=== PATIENT | female | born 1955 | race Caucasian/White ===

== ENCOUNTER → 2020-07-06 13:56 | Outpatient (BNVA) | payer OTHER, SELFPAY | PROVIDERS: PCP Nurse Practitioner Family; Referring Provider Nurse Practitioner Family; Visit Provider Physician Assistant | DX: M17.11 Unilateral primary osteoarthritis, right knee (principal); M81.0 Age-related osteoporosis without current pathological fracture; Z91.010 Allergy to peanuts; Z91.013 Allergy to seafood; Z91.018 Allergy to other foods; Z91.09 Other allergy status, other than to drugs and biological substances | CPT/HCPCS: 99202 ==

== ENCOUNTER 2020-10-28 14:00 | Outpatient (RCR) | payer MEDICARE, OTHER, SELFPAY ==
--- NOTE | 2020-09-21 12:26 | MHC.PT.EP ---
[facility] [place] Office [place] Office [place] Office [address] Baron Arizmendi [address] [phone] F: [phone] F: [phone] F: [phone] F: [phone] Physical Therapy Plan of Care Date of Evaluation: 09/20/20 Date of Surgery: N/A Diagnosis: unilateral primary osteoarthritis R knee Assessment: pt presents to physical therapy with pain, decreased range of motion, decreased strength, impaired functional mobility, impaired postural awareness, and gait deviations. pt is a good candidate for skilled PT due to age, potential remediation of impairments, typical disease/condition progression and prognosis, comorbidities, and motivation. pt would benefit from tailored strengthening and stretching exercise program, functional training, gait training, postural re-training, neuromuscular re-education, modalities as needed for pain, equipment safety demonstration. Frequency and Duration: The patient will be seen 2x/wk for 5 wks Short Term Goals: pt will be I w/ HEP to promote self-management of condition. pt will improve R quad strength by 1 MMT grade to promote ease in ascending stairs to access primary living spaces. Fci Goals: pt will report <1/10 R knee pain w/ standing for >30 min to promote ease in helping her perform ADLs. pt will report statistically significant improvement in self-reported outcome measure, LEFI, to facilitate return to PLOF. Treatment Plan: Modalities to reduce pain, spasms and effusion. Manual therapy to restore motion and function. Therapeutic exercise to improve strength and flexibility. Neuromuscular re-education for posture and balance. Therapeutic activities to return to functional activities of daily living. Electronically signed by: Suma Ball PT, DPT Please sign and return to therapist. Thank you for your referral.
--- NOTE | 2020-10-28 14:54 | MHC.PT.DC ---
[facility] [place] Office [place] Office [place] Office [address] Baron Arizmendi 140 [facility] [phone] F: [phone] F: [phone] F: [phone] F: [phone] Physical Therapy Discharge Report Diagnosis: unilateral primary osteoarthritis R knee Date of Surgery: N/A Date of Evaluation: 09/20/20 Date of Discharge: 10/28/20 Treatments to Date: 12 Cancellations to Date: 0 No Shows to Date: 0 Discharge Status: Achieved Goals Improved Function Independent with HEP Discharge Summary: The patient has improved regarding her pain severity, pain intensity, and ability to tolerate therapeutic exercise and activity. She is independent with her home exercise program including stretching, strengthening, and dynamic activities. She has achieved all goals established at the initial evaluation. She is discharged from this physical therapy plan of care. Electronically signed by: Suma Ball PT, DPT Please sign and return to therapist. Thank you for your referral.
== END 2020-10-28 14:54 | disposition other institution (70) ==
LOC: HO.PT 14:00
PROVIDERS: PCP Nurse Practitioner Family; Visit Provider Physician Assistant
DX: M17.11 Unilateral primary osteoarthritis, right knee (principal)
CPT/HCPCS: 97110; 97112; 97161; 97530

== ENCOUNTER 2021-01-13 08:58 | Outpatient (REF) | payer MEDICARE, SELFPAY ==
[2021-01-13 11:15] LABS: MANUAL DIFF FLAG NO
[2021-01-13 11:26] LABS: Hematocrit 39.6 % (37-47); Hemoglobin 12.8 g/dl (12.0-16.0); Imm Gran Pct Auto 0.5 % (0.0-0.4); Lymphocytes Percent Auto 32.3 % (20-40); Mean Corpuscular HGB Conc 32.3 g/dl (31.0-35.0); Mean Corpuscular Hemoglobin 29.6 pg (27.0-33.0); Mean Corpuscular Volume 91.7 fL (80-98); Mean Platelet Volume 12.4 fL (9.4-12.3); Neutrophils Percent Auto 50.4 % (45-73); Platelet Count 249 X10*3/uL (160-400); Red Blood Count 4.32 X10*6/uL (4.20-5.50); Red Cell Distribution Width 12.6 % (11.0-16.0); White Blood Count 6.5 X10*3/uL (4.8-10.8)
[2021-01-13 11:27] LABS: Basophils Absolute Auto 0.1 X10*3/uL (0.0-0.2); Basophils Percent Auto 0.8 % (0-2); Eosinophils Absolute Auto 0.7 X10*3/uL (0.0-0.4); Imm Gran Abs Auto 0.03 X10*3/uL (0.00-0.03); Lymphocytes Absolute Auto 2.1 X10*3/uL (1.2-4.9); Monocytes Absolute Auto 0.4 X10*3/uL (0.1-1.2); Neutrophils Absolute Auto 3.3 X10*3/uL (2.0-8.3)
[2021-01-13 12:00] LABS: TSH reflex Free T4 1.62 uIU/mL (0.32-4.0)
[2021-01-13 12:04] LABS: Alanine Aminotransferase 16 U/L (0-31); Albumin Level 3.8 g/dL (3.5-5.0); Alkaline Phosphatase 84 U/L (39-117); Anion Gap 10 (12-20); Aspartate Amino Transferase 17 U/L (5-31); Bilirubin Total 0.5 mg/dL (0.0-1.0); Blood Urea Nitrogen 18 mg/dL (9-16); Carbon Dioxide 29 mmol/L (22-29); Chloride 106 mmol/L (96-108); Cholesterol 161 mg/dL; Estimated Glomerular Filt Rate > 60; Glucose Fasting 86 mg/dL (60-99); HDL Cholesterol 56 mg/dL; LDL Cholesterol Calculated 93 mg/dl; Potassium 4.2 mmol/L (3.3-5.1); Sodium 141 mmol/L (135-145); Total Protein 6.8 g/dL (6.5-8.0); Triglycerides 61 mg/dL
[2021-01-19 16:26] LABS: Vitamin D 25-OH, D2 23 ng/mL; Vitamin D 25-OH, D3 25 ng/mL; Vitamin D 25-OH, Total 48 ng/mL (30-100)
== END 2021-01-13 08:59 | disposition home or self-care (01) ==
LOC: HO.HMGCLDS 08:58
PROVIDERS: PCP Internal Medicine; Visit Provider Internal Medicine
DX: M81.0 Age-related osteoporosis without current pathological fracture (principal); E55.9 Vitamin D deficiency, unspecified; I48.0 Paroxysmal atrial fibrillation; E78.9 Disorder of lipoprotein metabolism, unspecified; Z76.89 Persons encountering health services in other specified circumstances
CPT/HCPCS: 36415; 80053; 80061; 82306; 84443; 85025

== ENCOUNTER 2021-04-13 10:01 | Outpatient (REF) | payer MEDICARE, SELFPAY ==
--- NOTE | ~2021-04-13 | MM_ITS ---
EXAMINATION: BONE DENSITOMETRY CLINICAL INDICATION: Encounter for other screening for malignant neoplasm. COMPARISON: Previous BD dated 01/12/2016 and baseline BD dated 07/26/2010. TECHNIQUE: Using a [employer] DXA System (software version: 13.1) manufactured by [employer], dual-energy x-ray absorptiometry was performed of the lumbar spine and left hip. The images are of good technical quality. Summary results are attached. FINDINGS: AP SPINE L1-L4: Current: BMD 0.927 g/cm2, Z-score -0.6, T-score -2.1, osteopenia, 1.6% increase from previous, 6.6% increase from baseline (<5% change is not significant). Prior: BMD 0.912 g/cm2. Baseline: BMD 0.870 g/cm2. LEFT FEMUR, NECK: Current: BMD 0.657 g/cm2, Z-score -1.3, T-score -2.7, osteoporosis. Prior: BMD 0.737 g/cm2. Baseline: BMD 0.699 g/cm2. LEFT FEMUR, TOTAL: Current: BMD 0.750 g/cm2, Z-score -0.9, T-score -2.0, osteopenia, 10.8% decrease from previous, 5.1% decrease from baseline (<5% change is not significant). Prior: BMD 0.841 g/cm2. Baseline: BMD 0.790 g/cm2. IDENTIFIED RISK FACTORS: Osteoporosis, low calcium intake. Early menopause, secondary osteoporosis. HISTORY OF FRACTURE: None listed. MEDICATIONS: Calcium supplements or multivitamin, vitamin D. MM/XR DEXA axial skeleton IMPRESSION: 1. DIAGNOSIS: Osteoporosis based on the lowest T-score value of -2.7 in the femoral neck applying World Health Organization criteria. 2. 10-YEAR FRACTURE RISK PREDICTION, FRAX: Major osteoporotic fracture (clinical spine, forearm, hip or shoulder) 8.2%. Hip fracture 2.0%. 3. Treatment Recommendations: NOF guidelines recommend consideration for treatment in postmenopausal women and men age 50 and older presenting with the following: -A hip or vertebral (clinical or morphometric) fracture. -T-score less than or equal to -2.5 at the femoral neck or spine after appropriate evaluation to exclude secondary causes. -Low bone mass at the hip or spine and a 10-year fracture probability by FRAX of greater than or equal to 3% for hip fracture or greater than or equal to 20% for major osteoporotic fracture based on the [place] adapted WHO algorithm. 4. Other Recommendations: All treatment decisions require clinical judgment and consideration of individual patient factors, including patient preferences, comorbidities, previous drug use, risk factors not captured in the FRAX model (e.g. frailty, falls, vitamin D deficiency, increased bone turnover, interval significant decline in bone density) and possible under or overestimation of fracture risk by FRAX. Additional medical evaluation for secondary cause of low bone mineral density may be appropriate. FUTURE SCAN RECOMMENDATION: People with diagnosed cases of osteoporosis or at high risk for fracture should have regular bone mineral density tests. For patients eligible for Medicare, routine testing is allowed once every 2 years. The testing frequency can be increased to one year for patients who have rapidly progressing disease, those who are receiving or discontinuing medical therapy to restore bone mass, or have additional risk factors.
== END 2021-04-13 10:02 | disposition home or self-care (01) ==
LOC: HO.MAMMO 10:01
PROVIDERS: PCP Internal Medicine; Visit Provider Internal Medicine
DX: M81.0 Age-related osteoporosis without current pathological fracture (principal); Z78.0 Asymptomatic menopausal state
CPT/HCPCS: 77080

== ENCOUNTER 2021-05-01 10:17 | Outpatient (REF) | payer MEDICARE, SELFPAY ==
--- NOTE | ~2021-05-01 | MM_ITS ---
EXAMINATION: MM SCREENING DIGITAL BREAST TOMOSYNTHESIS, BILATERAL CLINICAL INFORMATION: Screening. Asymptomatic. The lifetime risk of breast cancer based on the Tyrer-Cuzick Model is 3%. COMPARISON: Mammography: 04/26/2020, 04/21/2019, 04/03/2018 TECHNIQUE: Digital breast tomosynthesis is performed in both the craniocaudal and mediolateral oblique views along with computer-aided detection (CAD). Synthesized 2D images are generated from the tomosynthesis. FINDINGS: The breasts are heterogeneously dense, which may obscure small masses (ACR BI-RADS breast composition Category c). There are no significant masses, abnormal calcifications, or other abnormalities. Parenchymal pattern is similar to prior studies. No developing density. Incidental intramammary nodes again noted outer quadrants. The axilla and skin contours are unremarkable. MM/MM tomosynthesis screening BI IMPRESSION: No mammographic evidence of malignancy. ASSESSMENT: BI-RADS 2: Benign RECOMMENDATION: Routine annual mammography screening. This patient's information was entered into a reminder system with a target due date for their next mammogram.
== END 2021-05-01 10:18 | disposition home or self-care (01) ==
LOC: HO.MAMMO 10:17
PROVIDERS: PCP Internal Medicine; Visit Provider Internal Medicine
DX: Z12.31 Encounter for screening mammogram for malignant neoplasm of breast (principal)
CPT/HCPCS: 77063; 77067

== ENCOUNTER 2021-06-14 10:00 | Outpatient (REF) | payer MEDICARE, SELFPAY ==
--- NOTE | ~2021-06-14 | XR_ITS ---
EXAMINATION: XR CERVICAL SPINE CLINICAL INFORMATION: Cervicalgia. COMPARISON: None TECHNIQUE: AP, lateral, open-mouth, and foraminal views of the cervical spine were obtained. FINDINGS: Normal vertebral body alignment. The cervical lordosis is maintained. No acute fracture or subluxation. No loss of vertebral body height. Loss of intervertebral disc height with anterior endplate osteophytes at C4-C7. No lytic or blastic osseous lesion. Normal atlantoaxial alignment. Unremarkable prevertebral soft tissues. XR/XR cervical spine 3V IMPRESSION: Degenerative disc disease at C4-C7.
== END 2021-06-14 10:01 | disposition home or self-care (01) ==
LOC: HO.XRAY 10:00
PROVIDERS: PCP Internal Medicine; Visit Provider Nurse Practitioner Family
DX: M54.2 Cervicalgia (principal)
CPT/HCPCS: 72040; 99202

== ENCOUNTER 2021-07-03 09:53 | Outpatient (REF) | payer MEDICARE, SELFPAY ==
[2021-07-05 13:30] LABS: HPV mRNA E6/E7 rflx Not Detected (Not Detected)
== END 2021-07-03 09:54 | disposition home or self-care (01) ==
LOC: HO.LAB 09:53
PROVIDERS: PCP Internal Medicine; Visit Provider Advanced Practice Midwife
DX: Z01.419 Encounter for gynecological examination (general) (routine) without abnormal findings (principal); N95.2 Postmenopausal atrophic vaginitis
CPT/HCPCS: 87624; 88142

== ENCOUNTER 2021-12-25 08:55 | Outpatient (REF) | payer MEDICARE, SELFPAY ==
[2021-12-25 12:04] LABS: Alanine Aminotransferase 16 U/L (0-31); Albumin Level 3.8 g/dL (3.5-5.0); Alkaline Phosphatase 85 U/L (39-117); Anion Gap 10 (12-20); Aspartate Amino Transferase 17 U/L (5-31); Bilirubin Total 0.6 mg/dL (0.0-1.0); Blood Urea Nitrogen 13 mg/dL (9-16); Calcium 9.3 mg/dL (8.4-10.2); Carbon Dioxide 30 mmol/L (22-29); Chloride 105 mmol/L (96-108); Cholesterol 180 mg/dL; Estimated Glomerular Filt Rate > 60; Glucose Fasting 88 mg/dL (60-99); HDL Cholesterol 51 mg/dL; LDL Cholesterol Calculated 93 mg/dl; Potassium 4.5 mmol/L (3.3-5.1); Sodium 140 mmol/L (135-145); Triglycerides 181 mg/dL
== END 2021-12-25 08:56 | disposition home or self-care (01) ==
LOC: HO.HMGCLDS 08:55
PROVIDERS: Visit Provider Internal Medicine
DX: E78.9 Disorder of lipoprotein metabolism, unspecified (principal); I48.0 Paroxysmal atrial fibrillation; M81.0 Age-related osteoporosis without current pathological fracture; E66.09 Other obesity due to excess calories
CPT/HCPCS: 36415; 80053; 80061

== ENCOUNTER 2022-05-14 09:58 | Outpatient (REF) | payer MEDICARE, SELFPAY ==
--- NOTE | ~2022-05-14 | MM_ITS ---
EXAMINATION: MM SCREENING DIGITAL BREAST TOMOSYNTHESIS, BILATERAL CLINICAL INFORMATION: Screening. Asymptomatic. The lifetime risk of breast cancer based on the Tyrer-Cuzick Model is 3%. COMPARISON: Mammography: 05/01/2021, 04/26/2020, 04/21/2019 TECHNIQUE: Digital breast tomosynthesis is performed in both the craniocaudal and mediolateral oblique views along with computer-aided detection (CAD). Synthesized 2D images are generated from the tomosynthesis. FINDINGS: The breasts are heterogeneously dense, which may obscure small masses (ACR BI-RADS breast composition Category c). There are no significant masses, abnormal calcifications, or other abnormalities. Parenchymal pattern is similar to prior studies. There is no developing density or architectural abnormality. The axilla and skin contours are unremarkable. No significant changes. MM/MM tomosynthesis screening BI IMPRESSION: No mammographic evidence of malignancy. ASSESSMENT: BI-RADS 1: Negative RECOMMENDATION: Routine annual mammography screening. This patient's information was entered into a reminder system with a target due date for their next mammogram.
== END 2022-05-14 09:59 | disposition home or self-care (01) ==
LOC: HO.MAMMO 09:58
PROVIDERS: PCP Internal Medicine; Visit Provider Internal Medicine
DX: Z12.31 Encounter for screening mammogram for malignant neoplasm of breast (principal)
CPT/HCPCS: 77063; 77067

== ENCOUNTER 2022-07-24 13:07 | Outpatient (REF) | payer MEDICARE, SELFPAY ==
[2022-07-24 14:18] LABS: MANUAL DIFF FLAG NO
[2022-07-24 14:21] LABS: Basophils Absolute Auto 0.1 X10*3/uL (0.0-0.2); Basophils Percent Auto 1.3 % (0-2); Eosinophils Absolute Auto 0.4 X10*3/uL (0.0-0.4); Eosinophils Percent Auto 6.2 % (0-4); Hemoglobin 12.7 g/dl (12.0-16.0); Imm Gran Abs Auto 0.01 X10*3/uL (0.00-0.03); Imm Gran Pct Auto 0.1 % (0.0-0.4); Lymphocytes Absolute Auto 2.2 X10*3/uL (1.2-4.9); Lymphocytes Percent Auto 31.8 % (20-40); Mean Corpuscular HGB Conc 32.6 g/dl (31.0-35.0); Mean Platelet Volume 12.5 fL (9.4-12.3); Monocytes Absolute Auto 0.4 X10*3/uL (0.1-1.2); Monocytes Percent Auto 6.1 % (2-11); Neutrophils Absolute Auto 3.8 x10*3/uL (2.0-8.3); Neutrophils Percent Auto 54.5 % (45-73); Platelet Count 265 X10*3/uL (160-400); Red Blood Count 4.24 X10*6/uL (4.20-5.50); Red Cell Distribution Width 12.6 % (11.0-16.0); White Blood Count 6.9 X10*3/uL (4.8-10.8)
[2022-07-24 15:12] LABS: Alanine Aminotransferase 14 U/L (0-31); Albumin Level 3.9 g/dL (3.5-5.0); Alkaline Phosphatase 97 U/L (39-117); Anion Gap 11 (12-20); Aspartate Amino Transferase 17 U/L (5-31); Bilirubin Total 0.4 mg/dL (0.0-1.0); Blood Urea Nitrogen 19 mg/dL (9-16); Calcium 9.2 mg/dL (8.4-10.2); Carbon Dioxide 29 mmol/L (22-29); Chloride 106 mmol/L (96-108); Estimated Glomerular Filt Rate > 60; Glucose Random 106 mg/dL (60-115); Potassium 4.1 mmol/L (3.3-5.1); Sodium 142 mmol/L (135-145)
[2022-07-27 09:47] LABS: LDL Cholesterol Direct 84 mg/dL (<100)
[2022-07-31 14:06] LABS: Vitamin D 25-OH, D2 7 ng/mL; Vitamin D 25-OH, D3 41 ng/mL; Vitamin D 25-OH, Total 48 ng/mL (30-100)
== END 2022-07-24 13:08 | disposition home or self-care (01) ==
LOC: HO.HMGCLDS 13:07
PROVIDERS: PCP Internal Medicine; Visit Provider Internal Medicine
DX: Z00.01 Encounter for general adult medical examination with abnormal findings (principal); E78.9 Disorder of lipoprotein metabolism, unspecified; I48.0 Paroxysmal atrial fibrillation; M81.0 Age-related osteoporosis without current pathological fracture; E66.09 Other obesity due to excess calories
CPT/HCPCS: 36415; 80053; 82306; 83721; 85025

== ENCOUNTER 2022-07-31 07:49 | Outpatient (REF) | payer MEDICARE, SELFPAY ==
[2022-07-31 08:11] LABS: MANUAL DIFF FLAG NO
[2022-07-31 09:21] LABS: Basophils Absolute Auto 0.1 X10*3/uL (0.0-0.2); Basophils Percent Auto 0.8 % (0-2); Eosinophils Absolute Auto 1.6 X10*3/uL (0.0-0.4); Hematocrit 38.8 % (37.0-47.0); Hemoglobin 12.8 g/dl (12.0-16.0); Imm Gran Abs Auto 0.01 X10*3/uL (0.00-0.03); Imm Gran Pct Auto 0.1 % (0.0-0.4); Lymphocytes Absolute Auto 2.6 X10*3/uL (1.2-4.9); Lymphocytes Percent Auto 30.3 % (20-40); Mean Corpuscular Hemoglobin 30.5 pg (27.0-33.0); Mean Corpuscular Volume 92.6 fL (80.0-98.0); Mean Platelet Volume 12.5 fL (9.4-12.3); Monocytes Absolute Auto 0.5 X10*3/uL (0.1-1.2); Monocytes Percent Auto 5.3 % (2-11); Neutrophils Absolute Auto 3.9 x10*3/uL (2.0-8.3); Neutrophils Percent Auto 45.5 % (45-73); Platelet Count 254 X10*3/uL (160-400); Red Blood Count 4.19 X10*6/uL (4.20-5.50); Red Cell Distribution Width 12.7 % (11.0-16.0); White Blood Count 8.6 X10*3/uL (4.8-10.8)
[2022-07-31 09:52] LABS: Alanine Aminotransferase 16 U/L (0-31); Alkaline Phosphatase 97 U/L (39-117); Anion Gap 15 (12-20); Aspartate Amino Transferase 18 U/L (5-31); Bilirubin Total 0.5 mg/dL (0.0-1.0); Blood Urea Nitrogen 18 mg/dL (9-16); Calcium 9.2 mg/dL (8.4-10.2); Carbon Dioxide 26 mmol/L (22-29); Chloride 105 mmol/L (96-108); Estimated Glomerular Filt Rate > 60; Glucose Random 88 mg/dL (60-115); Potassium 4.5 mmol/L (3.3-5.1); Sodium 141 mmol/L (135-145)
== END 2022-07-31 07:50 | disposition home or self-care (01) ==
LOC: HO.LAB 07:49
PROVIDERS: PCP Internal Medicine; Visit Provider Internal Medicine Cardiovascular Disease
DX: E66.09 Other obesity due to excess calories (principal); E78.9 Disorder of lipoprotein metabolism, unspecified; M81.0 Age-related osteoporosis without current pathological fracture; I48.0 Paroxysmal atrial fibrillation
CPT/HCPCS: 36415; 80053; 85025

== ENCOUNTER 2023-01-10 07:28 | Outpatient (REF) | payer MEDICARE, SELFPAY ==
[2023-01-10 11:57] LABS: Alanine Aminotransferase 15 U/L (0-31); Albumin Level 3.9 g/dL (3.5-5.0); Alkaline Phosphatase 88 U/L (39-117); Anion Gap 10 (12-20); Aspartate Amino Transferase 19 U/L (5-31); Bilirubin Total 0.4 mg/dL (0.0-1.0); Blood Urea Nitrogen 16 mg/dL (9-16); Calcium 9.2 mg/dL (8.4-10.2); Carbon Dioxide 27 mmol/L (22-29); Chloride 107 mmol/L (96-108); Cholesterol 157 mg/dL; Estimated Glomerular Filt Rate > 60; Glucose Fasting 85 mg/dL (60-99); HDL Cholesterol 51 mg/dL; LDL Cholesterol Calculated 91 mg/dl; Lipase 34 U/L (8-78); Potassium 4.6 mmol/L (3.3-5.1); Sodium 139 mmol/L (135-145); Triglycerides 78 mg/dL
== END 2023-01-10 07:29 | disposition home or self-care (01) ==
LOC: HO.HMGCLDS 07:28
PROVIDERS: PCP Internal Medicine; Visit Provider Internal Medicine
DX: Z00.01 Encounter for general adult medical examination with abnormal findings (principal); I48.0 Paroxysmal atrial fibrillation; E78.9 Disorder of lipoprotein metabolism, unspecified; M81.0 Age-related osteoporosis without current pathological fracture
CPT/HCPCS: 36415; 80053; 80061; 83690

== ENCOUNTER 2023-01-15 15:27 | Outpatient (REF) | payer MEDICARE, SELFPAY ==
--- NOTE | ~2023-01-15 | XR_ITS ---
EXAMINATION: XR CHEST CLINICAL INFORMATION: R09.89 - Other specified symptoms and signs COMPARISON: Chest radiographs 11/10/2019, 02/24/2015 TECHNIQUE: 2 views of the chest were obtained. FINDINGS: The lungs are clear. The vascularity is normal. There is no airspace consolidation or groundglass opacity or effusion. Heart size is normal. The vascularity is normal. The costophrenic sulci are clear. The hilar and mediastinal contours are unremarkable. No visible acute bony abnormality. XR/XR chest 2V IMPRESSION: Unremarkable examination.
[2023-01-15 19:43] LABS: Influenza A PCR NEGATIVE (Negative); Influenza B PCR NEGATIVE (Negative); Resp Syncy Virus RNA Qual PCR NEGATIVE (Negative); SARS COV2 PCR INHOUSE NEGATIVE (Negative)
== END 2023-01-15 15:28 | disposition home or self-care (01) ==
LOC: HO.HMGCX 15:27
PROVIDERS: PCP Internal Medicine; Visit Provider Internal Medicine
DX: Z20.822 Contact with and (suspected) exposure to COVID-19 (principal); R09.89 Other specified symptoms and signs involving the circulatory and respiratory systems
CPT/HCPCS: 0241U; 71046

== ENCOUNTER 2023-05-20 09:17 | Outpatient (REF) | payer MEDICARE, SELFPAY | END 2023-05-20 09:18 | disposition home or self-care (01) | LOC: HO.MAMMO 09:17 | PROVIDERS: PCP Internal Medicine; Visit Provider Internal Medicine | DX: Z12.31 Encounter for screening mammogram for malignant neoplasm of breast (principal) | CPT/HCPCS: 77063; 77067 ==

== ENCOUNTER → 2023-05-20 09:45 | Outpatient (BNV) | payer MEDICARE, SELFPAY | PROVIDERS: PCP Internal Medicine; Visit Provider Radiology Diagnostic Radiology | DX: Z12.31 Encounter for screening mammogram for malignant neoplasm of breast (principal) | CPT/HCPCS: 77063; 77067 ==

== ENCOUNTER 2023-07-01 10:24 | Outpatient (REF) | payer MEDICARE, SELFPAY ==
--- NOTE | ~2023-07-01 | MM_ITS ---
EXAMINATION: MM DIAGNOSTIC DIGITAL MAMMOGRAPHY, LEFT CLINICAL INFORMATION: Evaluate calcifications lateral breast seen on screening exam. COMPARISON: Mammography: Screening mammography 05/20/2023. Exams dating back to 2018. TECHNIQUE: Digital mammography is performed in the following views: 3-D spot magnification left CC views, and left 2-D ML magnification views x3. FINDINGS: The breasts are heterogeneously dense, which may obscure small masses (ACR BI-RADS breast composition Category c). Magnification views demonstrate in the lateral slightly superior left breast, middle one third, there are approximately 5 grouped punctate calcifications without significant pleomorphism, linear or branching forms, or suspicious distribution. These are probably benign, and 6 month interval follow-up recommended to ensure stability. Results were provided to the patient at time of visit by the technologist. MM/MM added views LT IMPRESSION: Probably benign small group of microcalcifications upper outer left breast, middle one third. Six-month follow-up recommended to ensure stability. This should include standard magnification views. ASSESSMENT: BI-RADS BI-RADS 3 - Probably benign finding(s) - 6 month follow-up suggested RECOMMENDATION: 6 Month F/U This patient's information was entered into a reminder system with a target due date for their next mammogram.
== END 2023-07-01 10:25 | disposition home or self-care (01) ==
LOC: HO.MAMMO 10:24
PROVIDERS: PCP Internal Medicine; Visit Provider Internal Medicine
DX: R92.1 Mammographic calcification found on diagnostic imaging of breast (principal)
CPT/HCPCS: 77065

== ENCOUNTER → 2023-07-01 11:00 | Outpatient (BNV) | payer MEDICARE, SELFPAY | PROVIDERS: PCP Internal Medicine; Visit Provider Radiology Diagnostic Radiology | DX: R92.1 Mammographic calcification found on diagnostic imaging of breast (principal) | CPT/HCPCS: 77065 ==

== ENCOUNTER 2023-07-09 10:06 | Outpatient (REF) | payer MEDICARE, SELFPAY ==
[2023-07-10 09:58] LABS: BV Int Neg Control Negative (Negative); BV Int Pos Control Positive (Positive)
== END 2023-07-09 10:07 | disposition home or self-care (01) ==
LOC: HO.LAB 10:06
PROVIDERS: PCP Internal Medicine; Visit Provider Advanced Practice Midwife
DX: Z01.419 Encounter for gynecological examination (general) (routine) without abnormal findings (principal); N89.8 Other specified noninflammatory disorders of vagina
CPT/HCPCS: 87480; 87510; 87660

== ENCOUNTER 2023-07-16 12:41 | Outpatient (AMB) | payer MEDICARE, SELFPAY ==
[2023-07-16 12:45] VITALS: BP 128/80; PULSE 67; O2SAT 97; BMI 30.8
--- NOTE | 2023-07-16 12:45 | A.OFFPC_ITS ---
Vital Signs 07/16/23 12:45 Height 4 ft 11 in Weight 152 lb 6 oz BMI 30.8 BP 128/80 Blood Pressure Location Rt brachial Position Sitting Pulse 67 Pulse Source Pulse Oximeter Pulse Oximetry (%) 97 Oxygen Delivery Method Room Air Intake Visit Reasons: 6 month follow up Allergies peach [PEACH] Allergy (Intermediate, Verified 07/16/23 12:45) ITCHY THROAT barley [Barley] Allergy (Unknown, Verified 07/16/23 12:45) + SKIN TEST peanut [PEANUT] Allergy (Unknown, Verified 07/16/23 12:45) + SKIN TEST food allergies Allergy (Unknown, Uncoded 07/09/23 10:16) unknown LOBSTER Allergy (Unknown, Uncoded 07/05/22 10:02) + SKIN TEST nuts Allergy (Unknown, Uncoded 07/05/22 10:02) unknown seasonal Allergy (Unknown, Uncoded 07/05/22 10:02) unknown Medication List - Last Reconciled 07/16/23 by Regina Reyes MD calcium carbonate 600 mg PO BID cholecalciferol (vitamin D3) 25 mcg PO DAILY 90 days clobetasol 0.05% 1 g topical .twice weekly 90 days denosumab (Prolia) 60 mg subcut [id number] leg brace (Knee Support Brace) Genumed Knee support [id number] metoprolol tartrate 25 mg PO BID 90 days simvastatin 20 mg PO DAILY 90 days Tobacco use date assessed: 07/16/23 Fall risk assessment: No Falls in past year Last assessed Fall Risk: 07/16/23 Dental Screening Dental Screen Date: 07/16/23 Did you have a dental visit in the last 12 months?: Yes Did you have a dental problem in the last 6 months where you did not have access to dental care?: No Was dental information given to patient?: Patient has dentist HPI 6 month follow up HPI Details Patient is 67-year-old female came in today for her six-month follow-up appointment on lipid disorder Patient also have a paroxysmally atrial fibrillation currently she is seeing Dr. Ran Michael and is on Xarelto through them along with metoprolol Lipid disorder: Patient is on simvastatin 20 mg, she is due for labs order place She has appointment with me in December for physical examination patient will have lab before december as well. Osteoporosis: Patient is on Prolia through endocrinology. BMI is elevated at 30.8 patient need to lose weight. [facility] Medical History Osteoporosis Atrial fibrillation Hyperlipidemia Surgical History History of bladder surgery Family History Mother HTN (hypertension) Diabetes Father Lung cancer Brother Lung cancer Stomach cancer Diabetes Sister Uterus cancer Social History Household Members: Spouse Household Members Other:: sister Housing: House Alcohol intake: current Alcohol intake frequency: holidays/special occasions only Patient Tobacco Use Status: Never used Tobacco e-Cigarette/Vaping Use: Never Used Second Hand Smoke Exposure: Yes service: No Current occupational status: retired Sexual orientation: Straight/Heterosexual Gender identity: Female Cognitive needs: No Hearing needs: No Vision needs: Yes Questionnaire PHQ-9 Over the last 2 weeks, how often have you been bothered by any of the following problems? 1. Little interest or pleasure in doing things: several days 2. Feeling down, depressed, or hopeless: not at all 3. Trouble falling or staying asleep, or sleeping too much: not at all 4. Feeling tired or having little energy: nearly every day 5. Poor appetite or overeating: not at all 6. Feeling bad about yourself - or that you are a failure or have let yourself or your family down: not at all 7. Trouble concentrating on things, such as reading the newspaper or watching television: nearly every day 8. Moving or speaking so slowly that other people could have noticed. Or the opposite - being so fidgety or restless that you have been moving around a lot more than usual: not at all 9. Thoughts that you would be better off or of hurting yourself in some way: not at all Total score: 7 Depression Screening Interpretation: Positive Depression Screening Follow-up: Existing condition and Declines treatment Depression Screening Done: Yes 19791 - PHQ-9 Billing: Yes Source: Developed by Drs. aJsen Fuller, Elizabeth Spencer, Kana Syed and colleagues, with an educational cee from [employer] Thrive Questionnaire Date Thrive assessed: 07/16/23 I am a: Patient What is your living situation today?: I have a steady place to live Within the past 12 months, did the food you bought not last and you didn't have the money to get more?: Never true Within the past 12 months, did you worry whether your food would run out before you got money to buy more?: Never true Do you have trouble paying for medicines?: No Do you have trouble getting transportation to medical appointments?: No Do you have trouble paying your heating and electricity bill?: No Do you have trouble taking care of your child, family member or friend?: No Do you have trouble with day-to-day activities such as bathing, preparing meals, shopping, managing finances, etc.?: No Are you currently unemployed and looking for a job?: No Are you interested in more education?: No Please select the resources that you would like help with: None Currently or been in a relationship where the following occur: no concerns reported DARIEN-7 AMB Questionnaire DARIEN-7 Date DARIEN - 7 assessed: 07/16/23 Feeling nervous, anxious, or on edge: 0 = Not at all Not being able to stop or control worryin = Several days Worrying too much about different things: 3 = Nearly every day Trouble relaxin = Nearly every day Being so restless that it is hard to sit still: 0 = Not at all Becoming easily annoyed or irritable: 0 = Not at all Feeling afraid as if something awful might happen: 0 = Not at all Total DARIEN-7 score (0-4 normal; 5-9 mild; 10-14 moderate; 15-21 severe): 7 Source: Developed by Drs. Jasen Fuller, Elizabeth Spencer, Kana Syed and colleagues, with an educational cee from [employer]. DARIEN-7 Assessment Billing DARIEN-7 Assessment Tool: DARIEN-7 Assessment 87748 Review of Systems Const Denies chills and Denies fever(s) ENT Denies epistaxis and Denies nasal discharge Card Denies chest pain Resp Denies chest congestion, Denies cough and Denies hemoptysis GI Denies diarrhea and Denies nausea Skin/Breast Denies rash Neuro Reports no additional complaints Psych Reports no additional complaints Endo Reports no additional complaints Physical exam (Primary Care) Vital Signs: Last Vital Signs Pulse 67 07/16/23 12:45 BP 128/80 07/16/23 12:45 Pulse Ox 97 07/16/23 12:45 Oxygen Delivery Method Room Air 07/16/23 12:45 BMI result Body Mass Index 30.8 Tobacco/Smoking Status: Tobacco use Status Tobacco use date assessed 07/16/23 07/16/23 12:47 Patient Tobacco Use Status Never used Tobacco 07/16/23 12:47 e-Cigarette/Vaping Use Never Used 07/16/23 12:47 PHQ-9: PHQ-9 Score PHQ-9: Total score 7 07/16/23 13:27 Depression Screening Interpretation: Positive Depression Screening Follow-up: Existing condition and Declines treatment Thrive Assessment: Date of Thrive Assessment Date Thrive assessed 07/16/23 07/16/23 13:27 Currently or been in a relationship where the following occur: no concerns reported Const General: cooperative, comfortable and no acute distress Orientation/consciousness: patient oriented x3 HENMT Head: Yes normocephalic Eyes General: appearance normal, both eyes and all related structures Neck Neck: Yes supple Resp Effort & Inspection: normal respiratory effort, no cough and no stridor Cardio Rhythm: regular rhythm Heart sounds: S1 normal heart sound present and S2 normal heart sound present Skin General skin exam: turgor normal Neuro General: patient oriented x3, tone normal and moves all extremities Extrem Right lower extremity: no edema Left lower extremity: no edema Assessment and Plan Assessment & Plan (1) Lipid disorder: Code(s): E78.9 - Disorder of lipoprotein metabolism, unspecified (2) Osteoporosis: Code(s): M81.0 - Age-related osteoporosis without current pathological fracture Qualifiers: Osteoporosis type: age-related Presence of current pathological fra cture: without current pathological fracture Qualified Code(s): M81.0 - Age- related osteoporosis without current pathological fracture (3) Paroxysmal atrial fibrillation: Code(s): I48.0 - Paroxysmal atrial fibrillation (4) Vitamin D deficiency: Code(s): E55.9 - Vitamin D deficiency, unspecified (5) Obesity due to excess calories: Code(s): E66.09 - Other obesity due to excess calories Qualifiers: Body mass index: BMI 30.0-30.9 Obesity classification: adult class 1 (BMI 30 - 34.9) Serious obesity comorbidity presence: with serious comorbidity Qualified Code(s): E66.09 - Other obesity due to excess calories; Z68.30 - Body mass index [BMI] 30.0-30.9, adult Plan Patient is 67-year-old female came in today for her six-month follow-up appointment on lipid disorder Patient also have a paroxysmally atrial fibrillation currently she is seeing Dr. Ran Michael and is on Xarelto through them along with metoprolol Lipid disorder: Patient is on simvastatin 20 mg, she is due for labs order place She has appointment with me in December for physical examination patient will have lab before december as well. Osteoporosis: Patient is on Prolia through endocrinology. BMI is elevated at 30.8 patient need to lose weight. Orders: Orders Lipid Panel Today E55.9 - Vitamin D deficiency, unspecified, E78.9 - Disorder of lipoprotein metabolism, unspecified, I48.0 - Paroxysmal atrial fibrillation, M81.0 - Age-related osteoporosis without current pathological fracture Complete Blood Count Auto Diff Today E55.9 - Vitamin D deficiency, unspecified, E78.9 - Disorder of lipoprotein metabolism, unspecified, I48.0 - Paroxysmal atrial fibrillation, M81.0 - Age-related osteoporosis without current patho logical fracture Comprehensive [place]. Panel Fast Today E55.9 - Vitamin D deficiency, unspecified, E78.9 - Disorder of lipoprotein metabolism, unspecified, I48.0 - Paroxysmal atrial fibrillation, M81.0 - Age-related osteoporosis without current pathological fracture Complete Blood Count Auto Diff 6 Months E55.9 - Vitamin D deficiency, unspecified, E78.9 - Disorder of lipoprotein metabolism, unspecified, I48.0 - Paroxysmal atrial fibrillation, M81.0 - Age-related osteoporosis without current pathological fracture Comprehensive [facility]. Panel Fast 6 Months E55.9 - Vitamin D deficiency, unspecified, E78.9 - Disorder of lipoprotein metabolism, unspecified, I48.0 - Paroxysmal atrial fibrillation, M81.0 - Age-related osteoporosis without current pathological fracture Lipid Panel 6 Months E55.9 - Vitamin D deficiency, unspecified, E78.9 - Disorder of lipoprotein metabolism, unspecified, I48.0 - Paroxysmal atrial fibrillation, M81.0 - Age-related osteoporosis without current pathological fracture Coding Level of Care Code Est Pt Level 4 (97716) Diagnoses Lipid disorder E78.9 Age-related osteoporosis without current pathological fracture M81.0 Osteoporosis type: age-related Presence of current pathological fracture: without current pathological fracture Paroxysmal atrial fibrillation I48.0 Vitamin D deficiency E55.9 Class 1 obesity due to excess calories with serious comorbidity and body mass index (BMI) of 30.0 to 30.9 in adult E66.09; Z68.30 Body mass index: BMI 30.0-30.9 Obesity classification: adult class 1 (BMI 30 - 34.9) Serious obesity comorbidity presence: with serious comorbidity Additional Codes DARIEN-7 Assessment Billing - DARIEN-7 Assessment Tool: DARIEN-7 Assessment [id number] ([id number])
== END 2023-07-16 13:37 | disposition home or self-care (01) ==
PROVIDERS: Visit Provider Internal Medicine
DX: E78.9 Disorder of lipoprotein metabolism, unspecified (principal); M81.0 Age-related osteoporosis without current pathological fracture; I48.0 Paroxysmal atrial fibrillation; E55.9 Vitamin D deficiency, unspecified; E66.09 Other obesity due to excess calories; Z68.30 Body mass index [BMI] 30.0-30.9, adult
CPT/HCPCS: 99214

== ENCOUNTER 2023-07-23 07:01 | Outpatient (REF) | payer MEDICARE, SELFPAY ==
[2023-07-23 07:12] LABS: MANUAL DIFF FLAG NO
[2023-07-23 07:34] LABS: Basophils Percent Auto 0.5 % (0-2); Eosinophils Absolute Auto 0.5 X10*3/uL (0.0-0.4); Eosinophils Percent Auto 6.8 % (0-4); Hematocrit 39.8 % (37.0-47.0); Hemoglobin 13.2 g/dl (12.0-16.0); Imm Gran Abs Auto 0.02 X10*3/uL (0.00-0.03); Imm Gran Pct Auto 0.3 % (0.0-0.4); Lymphocytes Percent Auto 38.1 % (20-40); Mean Corpuscular HGB Conc 33.2 g/dl (31.0-35.0); Mean Corpuscular Hemoglobin 30.1 pg (27.0-33.0); Mean Corpuscular Volume 90.7 fL (80.0-98.0); Mean Platelet Volume 11.8 fL (9.4-12.3); Monocytes Absolute Auto 0.5 X10*3/uL (0.1-1.2); Monocytes Percent Auto 5.9 % (2-11); Neutrophils Absolute Auto 3.8 x10*3/uL (2.0-8.3); Neutrophils Percent Auto 48.4 % (45-73); Platelet Count 281 X10*3/uL (160-400); Red Blood Count 4.39 X10*6/uL (4.20-5.50); Red Cell Distribution Width 12.8 % (11.0-16.0); White Blood Count 7.8 X10*3/uL (4.8-10.8)
[2023-07-23 07:48] LABS: Alanine Aminotransferase 19 U/L (0-31); Albumin Level 3.9 g/dL (3.5-5.0); Alkaline Phosphatase 81 U/L (39-117); Anion Gap 10 (12-20); Aspartate Amino Transferase 18 U/L (5-31); Bilirubin Total 0.5 mg/dL (0.0-1.0); Blood Urea Nitrogen 16 mg/dL (9-16); Calcium 9.7 mg/dL (8.4-10.2); Carbon Dioxide 29 mmol/L (22-29); Chloride 106 mmol/L (96-108); Cholesterol 175 mg/dL (<200); Estimated Glomerular Filt Rate > 60; Glucose Fasting 90 mg/dL (60-99); HDL Cholesterol 60 mg/dL (>40); LDL Cholesterol Calculated 101 mg/dL (<100); Potassium 4.3 mmol/L (3.3-5.1); Sodium 141 mmol/L (135-145); Total Protein 7.4 g/dL (6.5-8.0); Triglycerides 72 mg/dL (<150)
== END 2023-07-23 07:02 | disposition home or self-care (01) ==
LOC: HO.LAB 07:01
PROVIDERS: PCP Internal Medicine; Visit Provider Internal Medicine
DX: M81.0 Age-related osteoporosis without current pathological fracture (principal); I48.0 Paroxysmal atrial fibrillation; E78.9 Disorder of lipoprotein metabolism, unspecified; E55.9 Vitamin D deficiency, unspecified
CPT/HCPCS: 36415; 80053; 80061; 85025

== ENCOUNTER 2023-09-13 12:28 | Outpatient (AMB) | payer MEDICARE, SELFPAY ==
--- NOTE | 2023-09-13 12:35 | A.OFFPC_ITS ---
Vital Signs 09/13/23 12:36 Height 4 ft 11 in Weight 151 lb BMI 30.5 BP 96/62 Blood Pressure Location Lt brachial Position Sitting Pulse 85 Pulse Source Pulse Oximeter Pulse Oximetry (%) 98 Oxygen Delivery Method Room Air Intake Visit Reasons: Left Hand Pain Intake Note: Pt is here today for a sick visit. Pt c/o L hand pain for 2 months now. Allergies peach [PEACH] Allergy (Intermediate, Verified 09/13/23 12:39) ITCHY THROAT barley [Barley] Allergy (Unknown, Verified 09/13/23 12:39) + SKIN TEST peanut [PEANUT] Allergy (Unknown, Verified 09/13/23 12:39) + SKIN TEST food allergies Allergy (Unknown, Uncoded 09/13/23 12:39) unknown LOBSTER Allergy (Unknown, Uncoded 09/13/23 12:39) + SKIN TEST nuts Allergy (Unknown, Uncoded 09/13/23 12:39) unknown seasonal Allergy (Unknown, Uncoded 09/13/23 12:39) unknown Medication List - Last Reconciled 09/13/23 by Regina Reyes MD calcium carbonate 600 mg PO BID cholecalciferol (vitamin D3) 25 mcg PO DAILY 90 days clobetasol 0.05% 1 g topical .twice weekly 90 days denosumab (Prolia) 60 mg subcut [id number] leg brace (Knee Support Brace) Genumed Knee support [id number] metoprolol tartrate 25 mg PO BID 90 days simvastatin 20 mg PO DAILY 90 days Tobacco use date assessed: 09/13/23 Fall risk assessment: No Falls in past year Last assessed Fall Risk: 09/13/23 Dental Screening Dental Screen Date: 09/13/23 Did you have a dental visit in the last 12 months?: Yes Did you have a dental problem in the last 6 months where you did not have access to dental care?: No Was dental information given to patient?: Patient has dentist HPI Left Hand Pain HPI Details Patient is 67-year-old female came in today to be evaluated for difficulty hearing and pain in left hand In in left hand has been happening off and on for the past 2 months, patient says that she waited to see if it get better She has taken no medication for pain On examination both up ears are clean, I am booking her appointment for hearing test She has osteoarthritis both hands left hand smart energy specialist is weaker than the right 1, patient says that it is because of the pain I am treating her with meloxicam 15 mg once a day with food for a week and then half a tablet as needed we will book follow-up appointment 2 weeks Hand x-ray ordered as well. On review of system patient have no headache no fever no chills to shortness of breath no chest pain no paresthesia in her head no neck pain PFSH Medical History Osteoporosis Atrial fibrillation Hyperlipidemia Surgical History History of bladder surgery Family History Mother HTN (hypertension) Diabetes Father Lung cancer Brother Lung cancer Stomach cancer Diabetes Sister Uterus cancer Social History Household Members: Spouse Household Members Other:: sister Housing: House Alcohol intake: current Alcohol intake frequency: holidays/special occasions only Patient Tobacco Use Status: Never used Tobacco e-Cigarette/Vaping Use: Never Used Second Hand Smoke Exposure: Yes service: No Current occupational status: retired Sexual orientation: Straight/Heterosexual Gender identity: Female Cognitive needs: No Hearing needs: No Vision needs: Yes Questionnaire PHQ-9 Over the last 2 weeks, how often have you been bothered by any of the following problems? 1. Little interest or pleasure in doing things: not at all 2. Feeling down, depressed, or hopeless: not at all 3. Trouble falling or staying asleep, or sleeping too much: not at all 4. Feeling tired or having little energy: several days 5. Poor appetite or overeating: not at all 6. Feeling bad about yourself - or that you are a failure or have let yourself or your family down: not at all 7. Trouble concentrating on things, such as reading the newspaper or watching television: not at all 8. Moving or speaking so slowly that other people could have noticed. Or the opposite - being so fidgety or restless that you have been moving around a lot more than usual: not at all 9. Thoughts that you would be better off or of hurting yourself in some way: not at all Total score: 1 Depression Screening Interpretation: Negative Depression Screening Done: Yes 24043 - PHQ-9 Billing: Yes Source: Developed by Drs. Jasen Fuller, Elizabeth Spencer, Kana Syed and colleagues, with an educational cee from [employer]. Thrive Questionnaire Date Thrive assessed: 09/13/23 I am a: Patient Within the past 12 months, did the food you bought not last and you didn't have the money to get more?: Never true Within the past 12 months, did you worry whether your food would run out before you got money to buy more?: Never true Do you have trouble paying for medicines?: No Do you have trouble getting transportation to medical appointments?: No Do you have trouble paying your heating and electricity bill?: No Do you have trouble taking care of your child, family member or friend?: No Do you have trouble with day-to-day activities such as bathing, preparing meals, shopping, managing finances, etc.?: No Are you currently unemployed and looking for a job?: No Are you interested in more education?: No Please select the resources that you would like help with: None Currently or been in a relationship where the following occur: no concerns reported AUDIT C Alcohol Use Questionnaire (AUDIT-C) 1. How often do you have a drink containing alcohol?: Monthly or less 2. How many drinks containing alcohol do you have on a typical day when you are drinking?: 1 or 2 3. How often do you have six or more drinks on one occasion?: Never Total Score: 1 DARIEN-7 AMB Questionnaire DARIEN-7 Date DARIEN - 7 assessed: 09/13/23 Feeling nervous, anxious, or on edge: 0 = Not at all Not being able to stop or control worryin = Not at all Worrying too much about different things: 0 = Not at all Trouble relaxin = Not at all Being so restless that it is hard to sit still: 0 = Not at all Becoming easily annoyed or irritable: 0 = Not at all Feeling afraid as if something awful might happen: 0 = Not at all Total DARIEN-7 score (0-4 normal; 5-9 mild; 10-14 moderate; 15-21 severe): 0 Source: Developed by Drs. Jasen Fuller, Elizabeth Spencer, Kana Syed and colleagues, with an educational cee from [employer]. DARIEN-7 Assessment Billing DARIEN-7 Assessment Tool: DARIEN-7 Assessment 97524 Review of Systems Const All systems reviewed & are unremarkable except as noted in HPI and below Physical exam (Primary Care) Vital Signs: Last Vital Signs Pulse 85 09/13/23 12:36 BP 96/62 09/13/23 12:36 Pulse Ox 98 09/13/23 12:36 Oxygen Delivery Method Room Air 09/13/23 12:36 BMI result Body Mass Index 30.5 Tobacco/Smoking Status: Tobacco use Status Tobacco use date assessed 09/13/23 09/13/23 12:41 Patient Tobacco Use Status Never used Tobacco 09/13/23 12:41 e-Cigarette/Vaping Use Never Used 09/13/23 12:35 PHQ-9: PHQ-9 Score PHQ-9: Total score 1 09/13/23 13:08 Depression Screening Interpretation: Negative Thrive Assessment: Date of Thrive Assessment Date Thrive assessed 09/13/23 09/13/23 12:41 Currently or been in a relationship where the following occur: no concerns reported Const General: no acute distress Orientation/consciousness: patient oriented x3 Eyes General: appearance normal, both eyes and all related structures Resp Effort & Inspection: normal respiratory effort and able to speak in complete sentences Auscultation: clear to auscultation bilaterally Neuro General: patient oriented x3 Extrem Other: Signs of osteoarthritis small joints hands bilateral time is weaker hand smart energy specialist compared to right secondary to being Psych Mental Status: mental status grossly normal Assessment and Plan Assessment & Plan (1) Hand pain, left: Code(s): M79.642 - Pain in left hand (2) Difficulty hearing: Code(s): H91.90 - Unspecified hearing loss, unspecified ear Qualifiers: Laterality: bilateral Qualified Code(s): H91.93 - Unspecified hearing loss, bilateral Plan Patient is 67-year-old female came in today to be evaluated for difficulty hearing and pain in left hand In in left hand has been happening off and on for the past 2 months, patient says that she waited to see if it get better She has taken no medication for pain On examination both up ears are clean, I am booking her appointment for hearing test She has osteoarthritis both hands left hand smart energy specialist is weaker than the right 1, patient says that it is because of the pain I am treating her with meloxicam 15 mg once a day with food for a week and then half a tablet as needed we will book follow-up appointment 2 weeks Hand x-ray ordered as well. On review of system patient have no headache no fever no chills to shortness of breath no chest pain no paresthesia in her head no neck pain Orders: Orders XR hand LT 2V Today M79.642 - Pain in left hand Referrals Speech and Hearing Referral H91.90 - Unspecified hearing loss, unspecified ear Medications: New meloxicam Take it with food 15 mg PO DAILY 30 tabs 0RF 30 days Coding Level of Care Code Est Pt Level 3 (53625) Diagnoses Hand pain, left M79.642 Hearing difficulty of both ears H91.93 Laterality: bilateral Additional Codes DARIEN-7 Assessment Billing - DARIEN-7 Assessment Tool: DARIEN-7 Assessment 66323 ([id number])
[2023-09-13 12:36] VITALS: BP 96/62; PULSE 85; O2SAT 98; BMI 30.5
== END 2023-09-13 13:05 | disposition home or self-care (01) ==
PROVIDERS: PCP Internal Medicine; Visit Provider Internal Medicine
DX: M79.642 Pain in left hand (principal); H91.93 Unspecified hearing loss, bilateral
CPT/HCPCS: 99213

== ENCOUNTER 2023-09-13 13:09 | Outpatient (REF) | payer MEDICARE, SELFPAY ==
--- NOTE | ~2023-09-13 | XR_ITS ---
EXAMINATION: XR HAND, LEFT CLINICAL INFORMATION: Pain. COMPARISON: Radiographs dated 02/01/2017. TECHNIQUE: PA, lateral, and oblique views of the left hand. FINDINGS: Bony alignment and mineralization are normal. There is an ulnar positive variance. There is mild osteoarthritic change of the interphalangeal joint of the thumb. There is very mild osteoarthritic change of the first carpometacarpal joint. No fracture or dislocation is seen. The proximal and distal carpal rows are intact. There is no abnormal bone erosion. No focal soft tissue swelling, gas or foreign body is seen. XR/XR hand LT 2V IMPRESSION: 1. No fracture or dislocation is seen. 2. There is mild osteoarthritic change of the interphalangeal joint of the left thumb, and there is very mild osteoarthritic change of the left first carpometacarpal joint.
== END 2023-09-13 13:10 | disposition home or self-care (01) ==
LOC: HO.HMGCX 13:09
PROVIDERS: PCP Internal Medicine; Visit Provider Internal Medicine
DX: M79.642 Pain in left hand (principal)
CPT/HCPCS: 73120

== ENCOUNTER 2023-09-26 07:40 | Outpatient (AMB) | payer MEDICARE, SELFPAY ==
--- NOTE | 2023-09-26 09:19 | A.OFFPC_ITS ---
Vital Signs 09/26/23 09:21 Height 4 ft 11 in Intake Visit Reasons: 2 week follow up Left hand pain Allergies peach [PEACH] Allergy (Intermediate, Verified 09/26/23 09:19) ITCHY THROAT barley [Barley] Allergy (Unknown, Verified 09/26/23 09:19) + SKIN TEST peanut [PEANUT] Allergy (Unknown, Verified 09/26/23 09:19) + SKIN TEST food allergies Allergy (Unknown, Uncoded 09/13/23 12:39) unknown LOBSTER Allergy (Unknown, Uncoded 09/13/23 12:39) + SKIN TEST nuts Allergy (Unknown, Uncoded 09/13/23 12:39) unknown seasonal Allergy (Unknown, Uncoded 09/13/23 12:39) unknown Medication List - Last Reconciled 09/26/23 by Regina Reyes MD calcium carbonate 600 mg PO BID cholecalciferol (vitamin D3) 25 mcg PO DAILY 90 days clobetasol 0.05% 1 g topical .twice weekly 90 days denosumab (Prolia) 60 mg subcut [id number] metoprolol tartrate 25 mg PO BID 90 days rivaroxaban (Xarelto) 20 mg PO DAILY simvastatin 20 mg PO DAILY 90 days Tobacco use date assessed: 09/26/23 Fall risk assessment: No Falls in past year Last assessed Fall Risk: 09/26/23 Dental Screening Dental Screen Date: 09/26/23 Did you have a dental visit in the last 12 months?: Yes Did you have a dental problem in the last 6 months where you did not have access to dental care?: No Was dental information given to patient?: Patient has dentist HPI 2 week follow up Left hand pain HPI Details This is a telemedicine visit Patient continued to have pain in her left hand, we did the x-ray which showed osteoarthritic changes Patient says that she can take Tylenol but she is avoiding it, she feels that if this is something that she has to live with then she can tolerate little bit of pain. We talked about hand exercises and in the morning when she wakes up when the pain is worse she can run hot water over the hand and start moving the joints that will help Otherwise Tylenol can be taken up to 3 times a day. [facility] Medical History Osteoporosis Atrial fibrillation Hyperlipidemia Surgical History History of bladder surgery Family History Mother HTN (hypertension) Diabetes Father Lung cancer Brother Lung cancer Stomach cancer Diabetes Sister Uterus cancer Social History Household Members: Spouse Household Members Other:: sister Housing: House Alcohol intake: current Alcohol intake frequency: holidays/special occasions only Patient Tobacco Use Status: Never used Tobacco e-Cigarette/Vaping Use: Never Used Second Hand Smoke Exposure: Yes service: No Current occupational status: retired Sexual orientation: Straight/Heterosexual Gender identity: Female Cognitive needs: No Hearing needs: No Vision needs: Yes Questionnaire Thrive Questionnaire Date Thrive assessed: 09/13/23 DARIEN-7 AMB Questionnaire DARIEN-7 Date DARIEN - 7 assessed: 09/13/23 Source: Developed by Drs. Jasen Fuller, Elizabeth Spencer, Kana Syed and colleagues, with an educational cee from [employer]. Review of Systems Const Details: Negative except as listed in HPI Physical exam (Primary Care) Tobacco/Smoking Status: Tobacco use Status Tobacco use date assessed 09/26/23 09/26/23 09:21 Patient Tobacco Use Status Never used Tobacco 09/26/23 09:21 e-Cigarette/Vaping Use Never Used 09/26/23 09:21 Thrive Assessment: Date of Thrive Assessment Date Thrive assessed 09/13/23 09/26/23 09:21 Telehealth Telehealth Location of provider rendering services: practice address Location of patient: address on file Patient Identification confirmed using: Name, : Yes Telehealth method: voice only Patient verbally consented to treatment: Yes Patient verbally consented to billing insurance company: Yes Patient informed of any privacy concerns related to visit: Yes Minutes spent on Phone/Video with Pt.: 12 Assessment and Plan Assessment & Plan (1) Osteoarthritis of hands, bilateral: Code(s): M19.041 - Primary osteoarthritis, right hand; M19.042 - Primary osteoarthritis, left hand Qualifiers: Osteoarthritis type: primary Qualified Code(s): M19.041 - Primary oste oarthritis, right hand; M19.042 - Primary osteoarthritis, left hand Plan This is a telemedicine visit Patient continued to have pain in her left hand, we did the x-ray which showed osteoarthritic changes Patient says that she can take Tylenol but she is avoiding it, she feels that if this is something that she has to live with then she can tolerate little bit of pain. We talked about hand exercises and in the morning when she wakes up when the pain is worse she can run hot water over the hand and start moving the joints that will help Otherwise Tylenol can be taken up to 3 times a day. Coding Level of Care Code Tele Est Pt Level 3 (06475) Diagnoses Primary osteoarthritis of both hands M19.041; M19.042 Osteoarthritis type: primary
== END 2023-09-26 11:53 | disposition home or self-care (01) ==
LOC: HO.HMGC 07:40
PROVIDERS: PCP Internal Medicine; Visit Provider Internal Medicine
DX: M19.041 Primary osteoarthritis, right hand (principal); M19.042 Primary osteoarthritis, left hand
CPT/HCPCS: 99442

== ENCOUNTER 2023-12-06 10:25 | Outpatient (REF) | payer MEDICARE, SELFPAY ==
--- NOTE | ~2023-12-06 | MM_ITS ---
EXAMINATION: MM DIAGNOSTIC DIGITAL BREAST TOMOSYNTHESIS, LEFT CLINICAL INFORMATION: 6 month follow-up for subtle calcifications, probably benign, lateral aspect left breast. COMPARISON: Mammography: 07/01/2023, 05/20/2023 (BI-RADS 0), exams dating back to 2018. TECHNIQUE: Digital breast tomosynthesis is performed in both the craniocaudal and mediolateral oblique views along with computer-aided detection (CAD). Synthesized 2D images are generated from the tomosynthesis. In addition to standard views, left 2-D spot magnification CC and ML views were obtained. FINDINGS: The breasts are heterogeneously dense, which may obscure small masses (ACR BI-RADS breast composition Category c). Diagnostic views demonstrate no significant change in the extremely faint punctate calcifications in the upper far outer left breast. No significant pleomorphism, casting, linear forms or suspicious distribution. There are approximately 4 grouped calcifications which do not definitively meet biopsy criteria. These remain probably benign. No new suspicious findings in the left breast. There are vascular calcifications. Stable intramammary lymph node in the lateral left breast. MM/MM tomosynthesis diagnostic LT IMPRESSION: No findings in the left breast suspicious for malignancy. No significant changes from prior study. Subtle calcifications remain probably benign left breast upper outer quadrant, and six-month interval follow-up recommended when the patient is due for bilateral screening. ASSESSMENT: BI-RADS BI-RADS 3 - Probably benign finding(s) - 6 month follow-up suggested RECOMMENDATION: 6 Month F/U Results were provided to the patient at time of visit by the technologist. This patient's information was entered into a reminder system with a target due date for their next mammogram.
== END 2023-12-06 10:26 | disposition home or self-care (01) ==
LOC: HO.MAMMO 10:25
PROVIDERS: PCP Internal Medicine; Visit Provider Internal Medicine
DX: R92.1 Mammographic calcification found on diagnostic imaging of breast (principal)
CPT/HCPCS: 77061; 77065

== ENCOUNTER → 2023-12-06 11:00 | Outpatient (BNV) | payer MEDICARE, SELFPAY | PROVIDERS: PCP Internal Medicine; Visit Provider Radiology Diagnostic Radiology | DX: R92.1 Mammographic calcification found on diagnostic imaging of breast (principal) | CPT/HCPCS: 77065; G0279 ==

== ENCOUNTER 2023-12-19 10:05 | Outpatient (REF) | payer MEDICARE, SELFPAY | END 2023-12-19 10:06 | disposition home or self-care (01) | LOC: HO.SH 10:05 | PROVIDERS: PCP Internal Medicine; Visit Provider Internal Medicine | DX: Z01.118 Encounter for examination of ears and hearing with other abnormal findings (principal); H90.3 Sensorineural hearing loss, bilateral | CPT/HCPCS: 92557 ==

== ENCOUNTER 2024-01-15 06:58 | Outpatient (REF) | payer MEDICARE, SELFPAY ==
[2024-01-15 07:13] LABS: MANUAL DIFF FLAG NO
[2024-01-15 07:58] LABS: Basophils Absolute Auto 0.1 X10*3/uL (0.0-0.2); Basophils Percent Auto 0.8 % (0-2); Eosinophils Absolute Auto 0.7 X10*3/uL (0.0-0.4); Eosinophils Percent Auto 8.8 % (0-4); Hematocrit 38.4 % (37.0-47.0); Hemoglobin 12.9 g/dl (12.0-16.0); Imm Gran Abs Auto 0.02 X10*3/uL (0.00-0.03); Imm Gran Pct Auto 0.3 % (0.0-0.4); Lymphocytes Absolute Auto 2.9 X10*3/uL (1.2-4.9); Lymphocytes Percent Auto 36.3 % (20-40); Mean Corpuscular HGB Conc 33.6 g/dl (31.0-35.0); Mean Corpuscular Hemoglobin 30.3 pg (27.0-33.0); Mean Corpuscular Volume 90.1 fL (80.0-98.0); Mean Platelet Volume 12.1 fL (9.4-12.3); Monocytes Absolute Auto 0.5 X10*3/uL (0.1-1.2); Monocytes Percent Auto 5.7 % (2-11); Neutrophils Absolute Auto 3.8 x10*3/uL (2.0-8.3); Neutrophils Percent Auto 48.1 % (45-73); Platelet Count 275 X10*3/uL (160-400); Red Blood Count 4.26 X10*6/uL (4.20-5.50); Red Cell Distribution Width 13.2 % (11.0-16.0); White Blood Count 7.9 X10*3/uL (4.8-10.8)
[2024-01-15 08:51] LABS: Alanine Aminotransferase 15 U/L (0-31); Albumin Level 3.7 g/dL (3.5-5.0); Alkaline Phosphatase 80 U/L (39-117); Anion Gap 12 (12-20); Aspartate Amino Transferase 17 U/L (5-31); Bilirubin Total 0.4 mg/dL (0.0-1.0); Blood Urea Nitrogen 16 mg/dL (9-16); Carbon Dioxide 26 mmol/L (22-29); Chloride 108 mmol/L (96-108); Cholesterol 184 mg/dL (<200); Estimated Glomerular Filt Rate > 60; Glucose Fasting 85 mg/dL (60-99); HDL Cholesterol 53 mg/dL (>40); LDL Cholesterol Calculated 109 mg/dL (<100); Potassium 3.9 mmol/L (3.3-5.1); Sodium 142 mmol/L (135-145); Total Protein 7.1 g/dL (6.5-8.0); Triglycerides 110 mg/dL (<150)
== END 2024-01-15 06:59 | disposition home or self-care (01) ==
LOC: HO.LAB 06:58
PROVIDERS: PCP Internal Medicine; Visit Provider Internal Medicine
DX: M81.0 Age-related osteoporosis without current pathological fracture (principal); E55.9 Vitamin D deficiency, unspecified; I48.0 Paroxysmal atrial fibrillation; E78.9 Disorder of lipoprotein metabolism, unspecified
CPT/HCPCS: 36415; 80053; 80061; 85025

== ENCOUNTER 2024-01-17 13:59 | Outpatient (AMB) | payer MEDICARE, SELFPAY ==
--- NOTE | 2024-01-17 14:02 | MHC.PC.OV ---
Vital Signs 01/17/24 14:04 Height 4 ft 11 in Weight 154 lb BMI 31.1 BP 102/66 Blood Pressure Location Rt brachial Position Sitting Pulse 91 Pulse Source Pulse Oximeter Pulse Oximetry (%) 96 Oxygen Delivery Method Room Air Intake Visit Reasons: Annual PE Allergies peach [PEACH] Allergy (Intermediate, Verified 01/17/24 14:05) ITCHY THROAT barley [Barley] Allergy (Unknown, Verified 01/17/24 14:05) + SKIN TEST peanut [PEANUT] Allergy (Unknown, Verified 01/17/24 14:05) + SKIN TEST food allergies Allergy (Unknown, Uncoded 09/13/23 12:39) unknown LOBSTER Allergy (Unknown, Uncoded 09/13/23 12:39) + SKIN TEST nuts Allergy (Unknown, Uncoded 09/13/23 12:39) unknown seasonal Allergy (Unknown, Uncoded 09/13/23 12:39) unknown Medication List - Last Reconciled 01/17/24 by Regina Reyes MD calcium carbonate 600 mg PO BID cholecalciferol (vitamin D3) 25 mcg PO DAILY 90 days denosumab (Prolia) 60 mg subcut [id number] metoprolol tartrate 25 mg PO BID 90 days rivaroxaban (Xarelto) 20 mg PO DAILY simvastatin 20 mg PO DAILY 90 days Tobacco use date assessed: 09/26/23 Fall risk assessment: No Falls in past year Last assessed Fall Risk: 01/17/24 Dental Screening Dental Screen Date: 09/26/23 HPI Annual PE HPI Details Patient is 68-year-old female with a history of lipid disorder, paroxysmal atrial fibrillation Established with Cardiology Came in for physical exam Mammogram is up-to-date Colonoscopy was 5 years ago as per patient and it was normal OBGYN visit July of last year Labs done recently reviewed with the patient She offers no complaints BMI is elevated patient is trying to lose weight All medications through Cardiology office [facility] Medical History Osteoporosis Atrial fibrillation Hyperlipidemia Surgical History History of bladder surgery Family History Mother HTN (hypertension) Diabetes Father Lung cancer Brother Lung cancer Stomach cancer Diabetes Sister Uterus cancer Social History Household Members: Spouse Household Members Other:: sister Housing: House Alcohol intake: current Alcohol intake frequency: holidays/special occasions only Patient Tobacco Use Status: Never used Tobacco e-Cigarette/Vaping Use: Never Used Second Hand Smoke Exposure: Yes service: No Current occupational status: retired Sexual orientation: Straight/Heterosexual Gender identity: Female Cognitive needs: No Hearing needs: No Vision needs: Yes Questionnaire Thrive Questionnaire Date Thrive assessed: 09/13/23 DAIREN-7 AMB Questionnaire DARIEN-7 Date DARIEN - 7 assessed: 09/13/23 Source: Developed by Drs. Jasen Fuller, Elizabeth Spencer, Kana Syed and colleagues, with an educational cee from [employer]. Review of Systems Const Denies chills, Denies fever(s) and Denies headache(s) Eyes Denies blurry vision ENT Denies headache(s), Denies nasal discharge, Denies nasal obstruction, Denies odynophagia and Denies sinus pain Card Denies chest pain at rest and Denies chest pain with activity Resp Denies cough and Denies hemoptysis GI Denies diarrhea, Denies odynophagia, Denies vomiting and Denies hematemesis Reports as per HPI Musc Denies abnormal gait Skin/Breast Reports as per HPI Neuro Denies Neuro-related abnormal movements, Denies Abnormal speech present, Denies abnormal gait, Denies headache(s) and Denies Sensory deficit (Neuro) Psych Denies mood swings and Denies paranoia Endo Reports as per HPI Jorge/Lymph Reports as per HPI Aller/Immun Reports as per HPI Physical exam (Primary Care) Vital Signs: Last Vital Signs Pulse 91 01/17/24 14:04 BP 102/66 01/17/24 14:04 Pulse Ox 96 01/17/24 14:04 Oxygen Delivery Method Room Air 01/17/24 14:04 BMI result Body Mass Index 31.1 Tobacco/Smoking Status: Tobacco use Status Tobacco use date assessed 09/26/23 01/17/24 14:03 Patient Tobacco Use Status Never used Tobacco 01/17/24 14:03 e-Cigarette/Vaping Use Never Used 01/17/24 14:03 Thrive Assessment: Date of Thrive Assessment Date Thrive assessed 09/13/23 01/17/24 14:03 Const General: cooperative, comfortable and no acute distress Orientation/consciousness: patient oriented x3 HENMT Head: Yes normocephalic and Yes atraumatic Eyes General: appearance normal, both eyes and all related structures Pupils: Equal, round and reactive pupils present EOM: EOMs intact bilaterally Neck Neck: Yes supple and No lymphadenopathy Thyroid: Thyroid normal Lymphatic: no lymphadenopathy noted Resp Effort & Inspection: normal respiratory effort and able to speak in complete sentences Auscultation: clear to auscultation bilaterally Cardio Heart sounds: S1 normal heart sound present and S2 normal heart sound present GI Palpation (GI): Soft to palpation and nontender Auscultation: normal bowel sounds General: Yes no CVA tenderness Back/Spine/Pelvis Back: no CVA tenderness Skin General skin exam: elasticity normal and turgor normal Neuro General: patient oriented x3 and gait normal Cranial nerves: Yes Equal, round and reactive pupils present Speech: No Abnormal speech present Sensory Exam: No Sensory deficit (Neuro) Coordination: tandem gait normal and Romberg test negative Extrem General: Yes normal exam except as noted and No edema Assessment and Plan Assessment & Plan (1) Encounter for general adult medical examination with abnormal findings: Code(s): Z00.01 - Encounter for general adult medical examination with abnormal findings (2) Obesity due to excess calories: Code(s): E66.09 - Other obesity due to excess calories Qualifiers: Obesity classification: adult class 1 (BMI 30 - 34.9) Serious obesity comorbidity presence: with serious comorbidity Body mass index: BMI 30.0-30.9 Qualified Code(s): E66.09 - Other obesity due to excess calories; Z68.30 - Body mass index [BMI] 30.0-30.9, adult (3) Paroxysmal atrial fibrillation: Code(s): I48.0 - Paroxysmal atrial fibrillation (4) Osteoporosis: Code(s): M81.0 - Age-related osteoporosis without current pathological fracture Qualifiers: Osteoporosis type: age-related Presence of current pathological fracture: without current pathological fracture Qualified Code(s): M81.0 - Age-related osteoporosis without current pathological fracture (5) Osteoarthritis of hands, bilateral: Code(s): M19.041 - Primary osteoarthritis, right hand; M19.042 - Primary osteoarthritis, left hand Qualifiers: Osteoarthritis type: primary Qualified Code(s): M19.041 - Primary osteoarthritis, right hand; M19.042 - Primary osteoarthritis, left hand Plan Patient is 68-year-old female with a history of lipid disorder, paroxysmal atrial fibrillation Established with Cardiology Came in for physical exam Mammogram is up-to-date Colonoscopy was 5 years ago as per patient and it was normal OBGYN visit July of last year Labs done recently reviewed with the patient She offers no complaints BMI is elevated patient is trying to lose weight All medications through Cardiology office Coding Level of Care Code Est Pt Prev Care >65y(25047) Diagnoses Encounter for general adult medical examination with abnormal findings Z00.01 Class 1 obesity due to excess calories with serious comorbidity and body mass index (BMI) of 30.0 to 30.9 in adult E66.09; Z68.30 Obesity classification: adult class 1 (BMI 30 - 34.9) Serious obesity comorbidity presence: with serious comorbidity Body mass index: BMI 30.0-30.9 Paroxysmal atrial fibrillation I48.0 Age-related osteoporosis without current pathological fracture M81.0 Osteoporosis type: age-related Presence of current pathological fracture: without current pathological fracture Primary osteoarthritis of both hands M19.041; M19.042 Osteoarthritis type: primary
[2024-01-17 14:04] VITALS: BP 102/66; PULSE 91; O2SAT 96; BMI 31.1
== END 2024-01-17 14:28 | disposition home or self-care (01) ==
PROVIDERS: Visit Provider Internal Medicine
DX: Z00.00 Encounter for general adult medical examination without abnormal findings (principal); I48.0 Paroxysmal atrial fibrillation; E66.09 Other obesity due to excess calories; Z68.30 Body mass index [BMI] 30.0-30.9, adult; M81.0 Age-related osteoporosis without current pathological fracture; M19.041 Primary osteoarthritis, right hand; M19.042 Primary osteoarthritis, left hand
CPT/HCPCS: 99397

== ENCOUNTER 2024-06-11 08:23 | Outpatient (AMB) | payer MEDICARE, SELFPAY ==
--- NOTE | 2024-06-11 08:24 | A.OFFPC_ITS ---
Intake Visit Reasons: Referral Req~[phone] Allergies peach [PEACH] Allergy (Intermediate, Verified 06/11/24 08:24) ITCHY THROAT barley [Barley] Allergy (Unknown, Verified 06/11/24 08:24) + SKIN TEST peanut [PEANUT] Allergy (Unknown, Verified 06/11/24 08:24) + SKIN TEST food allergies Allergy (Unknown, Uncoded 09/13/23 12:39) unknown LOBSTER Allergy (Unknown, Uncoded 09/13/23 12:39) + SKIN TEST nuts Allergy (Unknown, Uncoded 09/13/23 12:39) unknown seasonal Allergy (Unknown, Uncoded 09/13/23 12:39) unknown Medication List - Last Reconciled 06/11/24 by Regina Reyes MD calcium carbonate 600 mg PO BID cholecalciferol (vitamin D3) 25 mcg PO DAILY 90 days denosumab (Prolia) 60 mg subcut [id number] metoprolol tartrate 25 mg PO BID 90 days rivaroxaban (Xarelto) 20 mg PO DAILY simvastatin 20 mg PO DAILY 90 days Tobacco use date assessed: 06/11/24 Fall risk assessment: No Falls in past year Last assessed Fall Risk: 06/11/24 Dental Screening Dental Screen Date: 06/11/24 Did you have a dental visit in the last 12 months?: Yes Did you have a dental problem in the last 6 months where you did not have access to dental care?: No Was dental information given to patient?: Patient has dentist HPI Referral Req~[phone] HPI Details Patient is 68 year old female having difficulty walking due to pain both feet patient states its been difficult for past 2 years she cant wear closed toes shoes or anything with stiff upper part she wear cloth shoes or open toe sandles only due to swelling outer part of both big toes she is requesting ref to Podiatry [facility] Medical History Osteoporosis Atrial fibrillation Hyperlipidemia Surgical History History of bladder surgery Family History Mother HTN (hypertension) Diabetes Father Lung cancer Brother Lung cancer Stomach cancer Diabetes Sister Uterus cancer Social History Household Members: Spouse Household Members Other:: sister Housing: House Alcohol intake: current Alcohol intake frequency: holidays/special occasions only Patient Tobacco Use Status: Never used Tobacco e-Cigarette/Vaping Use: Never Used Second Hand Smoke Exposure: Yes service: No Current occupational status: retired Sexual orientation: Straight/Heterosexual Gender identity: Female Cognitive needs: No Hearing needs: No Vision needs: Yes Questionnaire Thrive Questionnaire Date Thrive assessed: 09/13/23 AUDIT C Alcohol Use Questionnaire (AUDIT-C) 1. How often do you have a drink containing alcohol?: Monthly or less 2. How many drinks containing alcohol do you have on a typical day when you are drinking?: 1 or 2 3. How often do you have six or more drinks on one occasion?: Never Total Score: 1 Score Reviewed/Action Taken: Yes DARIEN-7 AMB Questionnaire DARIEN-7 Date DARIEN - 7 assessed: 09/13/23 Source: Developed by Drs. Jasen Fuller, Elizabeth Spencer, Kana Syed and colleagues, with an educational cee from [employer]. Review of Systems Const All systems reviewed & are unremarkable except as noted in HPI and below Physical exam (Primary Care) Tobacco/Smoking Status: Tobacco use Status Tobacco use date assessed 06/11/24 06/11/24 08:24 Patient Tobacco Use Status Never used Tobacco 06/11/24 08:24 e-Cigarette/Vaping Use Never Used 06/11/24 08:24 Thrive Assessment: Date of Thrive Assessment Date Thrive assessed 09/13/23 06/11/24 08:24 Telehealth Telehealth Telehealth Platform: [facility] Location of provider rendering services: practice address Location of patient: address on file Patient Identification confirmed using: Name, : Yes Telehealth method: voice only Patient verbally consented to treatment: Yes Patient verbally consented to billing insurance company: Yes Patient informed of any privacy concerns related to visit: Yes Minutes spent on Phone/Video with Pt.: 13 Coding Level of Care Code Tele Est Pt Level 3 (13234) Diagnoses Bilateral bunions M21.611; M21.612 Assessment & Plan Assessment & Plan (1) Bilateral bunions: Code(s): M21.611 - Bunion of right foot; M21.612 - Bunion of left foot Category: Medical Plan Patient is 68 year old female having difficulty walking due to pain both feet patient states its been difficult for past 2 years she cant wear closed toes shoes or anything with stiff upper part she wear cloth shoes or open toe sandles only due to swelling outer part of both big toes she is requesting ref to Podiatry Orders: Referrals Podiatry Referral M21.611 - Bunion of right foot, M21.612 - Bunion of left foot
== END 2024-06-11 09:51 | disposition home or self-care (01) ==
LOC: HO.HMCC 08:23
PROVIDERS: PCP Internal Medicine; Visit Provider Internal Medicine
DX: M21.611 Bunion of right foot (principal); M21.612 Bunion of left foot

== ENCOUNTER → 2024-06-11 08:23 | Outpatient (BNVA) | payer MEDICARE, SELFPAY | PROVIDERS: PCP Internal Medicine; Visit Provider Internal Medicine ==

== ENCOUNTER 2024-06-16 10:40 | Outpatient (REF) | payer MEDICARE, SELFPAY ==
--- NOTE | ~2024-06-16 | MM_ITS ---
EXAMINATION: MM DIAGNOSTIC DIGITAL BREAST TOMOSYNTHESIS, BILATERAL CLINICAL INFORMATION: Six-month follow-up (for 1 year stability) subtle and faint probably benign calcifications left breast upper outer quadrant, middle one third. COMPARISON: Mammography: 07/01/2023, 05/20/2023 (BI-RADS 0), exams dating back to 2018. TECHNIQUE: Digital breast tomosynthesis is performed in both the craniocaudal and mediolateral oblique views along with computer-aided detection (CAD). Synthesized 2D images are generated from the tomosynthesis. In addition to standard views, 2-D spot magnification left CC and ML views were also obtained. FINDINGS: The breasts are heterogeneously dense, which may obscure small masses (ACR BI-RADS breast composition Category c). Diagnostic views again demonstrate no significant change in the extremely faint punctate calcifications in the upper far outer left breast. No significant pleomorphism, casting, linear forms or suspicious distribution. There are approximately 4 grouped calcifications which do not definitively meet biopsy criteria. These remain probably benign. One-year follow-up recommended to establish a 2 year stability. Otherwise, there are vascular calcifications and stable intramammary benign lymph nodes in the upper outer regions of both breasts. There are no suspicious masses, new suspicious grouped calcifications, or areas of architectural distortion in either breast. The parenchymal pattern is stable from prior exams. There is no skin or axillary abnormality. MM/MM tomosynthesis diagnostic BI IMPRESSION: There are no findings in either breast suspicious for malignancy. Calcifications in the upper outer left breast, remain probably benign without aggressive changes. One-year follow-up recommended when the patient is due for bilateral. ASSESSMENT: BI-RADS BI-RADS 3 - Probably benign finding(s) - 12 month follow-up suggested RECOMMENDATION: 12 month diagnostic follow up Results were provided to the patient at time of visit by the technologist. This patient's information was entered into a reminder system with a target due date for their next mammogram. Electronically signed by: Prabhjot Jeong MD 06/16/2024 12:15 PM EDT
== END 2024-06-16 10:41 | disposition home or self-care (01) ==
LOC: HO.MAMMO 10:40
PROVIDERS: PCP Internal Medicine; Visit Provider Internal Medicine
DX: R92.1 Mammographic calcification found on diagnostic imaging of breast (principal)
CPT/HCPCS: 77062; 77066

== ENCOUNTER → 2024-06-16 11:00 | Outpatient (BNV) | payer MEDICARE, SELFPAY | PROVIDERS: PCP Internal Medicine; Visit Provider Radiology Diagnostic Radiology | DX: R92.1 Mammographic calcification found on diagnostic imaging of breast (principal) | CPT/HCPCS: 77066; G0279 ==

== ENCOUNTER 2024-10-30 12:25 | Outpatient (REF) | payer MEDICARE, SELFPAY ==
--- NOTE | ~2024-10-30 | XR_ITS ---
EXAMINATION: XR CHEST CLINICAL INFORMATION: R05.9 - Cough, unspecified COMPARISON: 01/15/2023. TECHNIQUE: 2 views of the chest were obtained. FINDINGS: The cardiac, hilar, and mediastinal contours are normal. The lungs are clear bilaterally. There is no pneumothorax or pleural effusion. There is no focal osseous or soft tissue abnormality. Mild degenerative changes of the spine. XR/XR chest 2V IMPRESSION: Normal chest. Electronically signed by: Prabhjot Jeong MD 10/30/2024 02:09 PM [facility]J
--- OUTSIDE RECORDS SUMMARY | 2024-10-30 16:04 | XMS_ITS | Clinical Summary ---
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
== END 2024-10-30 12:26 | disposition home or self-care (01) ==
LOC: HO.HMGCX 12:25
PROVIDERS: PCP Internal Medicine; Visit Provider Physician Assistant Medical
DX: R05.9 Cough, unspecified (principal); J22 Unspecified acute lower respiratory infection
CPT/HCPCS: 71046; 99212

== ENCOUNTER 2024-10-30 12:25 | Outpatient (AMB) | payer MEDICARE, SELFPAY ==
--- NOTE | 2024-10-30 13:13 | MHC.OFFWIV ---
Intake Vital Signs 10/30/24 13:15 Weight 151 lb BP 120/80 Blood Pressure Location Rt brachial Position Sitting Pulse 83 Pulse Source Pulse Oximeter Temp 98.6 F Temp Source Oral Pulse Oximetry (%) 96 Oxygen Delivery Method Room Air Intake Visit Reasons: EP cough Intake Note: Patient here for persistent cough that has been present for over 2 weeks. Patient Tobacco Use Status: Never used Tobacco Allergies peach [PEACH] Allergy (Intermediate, Verified 10/30/24 13:15) ITCHY THROAT barley [Barley] Allergy (Unknown, Verified 10/30/24 13:15) + SKIN TEST peanut [PEANUT] Allergy (Unknown, Verified 10/30/24 13:15) + SKIN TEST food allergies Allergy (Unknown, Uncoded 09/13/23 12:39) unknown LOBSTER Allergy (Unknown, Uncoded 09/13/23 12:39) + SKIN TEST nuts Allergy (Unknown, Uncoded 09/13/23 12:39) unknown seasonal Allergy (Unknown, Uncoded 09/13/23 12:39) unknown Do you need a note to return to daycare/school/sports/work: No HPI HPI Comments History of Present Illness Details This is a 69-year-old female who presented to the walk-in clinic complaining of a persistent cough x2 weeks. Patient states her symptoms started with viral URI symptoms such as he low congestion, rhinorrhea, sore throat, fever/chills, and a dry cough. She states that most of the symptoms have resolved; however, she continues to have a persistent cough productive of green sputum. She states the cough is present throughout the day and is not necessarily worse at night or in the morning. She denies any chest pain or shortness of breath. She denies any hemoptysis. She denies any more fevers or chills. She states her is sick at home with similar symptoms. [facility] Medical History Osteoporosis Atrial fibrillation Hyperlipidemia Surgical History History of bladder surgery Family History Mother HTN (hypertension) Diabetes Father Lung cancer Brother Lung cancer Stomach cancer Diabetes Sister Uterus cancer Social History Household Members: Spouse Household Members Other:: sister Housing: House Alcohol intake: current Alcohol intake frequency: holidays/special occasions only Patient Tobacco Use Status: Never used Tobacco e-Cigarette/Vaping Use: Never Used Second Hand Smoke Exposure: Yes service: No Current occupational status: retired Sexual orientation: Straight/Heterosexual Gender identity: Female Cognitive needs: No Hearing needs: No Vision needs: Yes Review of Systems Const All systems reviewed & are unremarkable except as noted in HPI and below Reports no additional complaints Eyes Reports no additional complaints ENT Reports no additional complaints Card Reports no additional complaints Resp Reports no additional complaints GI Reports no additional complaints Reports no additional complaints Musc Reports no additional complaints Skin/Breast Reports system reviewed and no additional complaints, except as documented Neuro Reports no additional complaints Psych Reports no additional complaints Endo Reports no additional complaints Jorge/Lymph Reports no additional complaints Aller/Immun Reports no additional complaints Physical Exam Vital Signs: Last Vital Signs Temp 98.6 F 10/30/24 13:15 Pulse 83 10/30/24 13:15 BP 120/80 10/30/24 13:15 Pulse Ox 96 10/30/24 13:15 Oxygen Delivery Method Room Air 10/30/24 13:15 Const Other: Vital signs reviewed. Constitutional: Non-toxic appearing. No acute distress. Well-developed and well-nourished. HEENT: Normocephalic and atraumatic. Skin: Warm and dry. No rashes or lesions noted. Neck: Full and painless range of motion. No cervical lymphadenopathy. Cardio: Regular rate and rhythm. No murmurs, gallops, or rubs. No lower extremity edema. No JVD. Pulmonary: No respiratory distress. No accessory muscle usage. Clear to auscultation bilaterally without wheezing, crackles, or rhonchi. Gastrointestinal: Soft, nontender, and nondistended in all 4 quadrants. Musculoskeletal: Normal range of motion in joints throughout the body. No deformity or other signs of injury. Neuro: Alert and oriented x4. Cranial nerves 2-12 grossly intact. No focal deficits appreciated. Psych: Normal mood and affect. Assessment & Plan Assessment & Plan (1) Acute lower respiratory tract infection: Code(s): J22 - Unspecified acute lower respiratory infection Plan: This is a 69-year-old female who presented to the walk-in clinic complaining of persistent productive cough x2 weeks in the setting of viral URI symptoms. Her physical exam is benign with normal lung sounds bilaterally. Patient could possibly have post-viral cough syndrome versus acute viral lower respiratory tract infection versus pnuemonia. A chest x-ray was obtained in office, which was negative for acute cardiopulmonary process. Patient was given a prescription for p.o. prednisone 40 mg daily x5 days as well as p.o. benzonatate 100 mg 3 times daily as needed for cough. She was advised to follow-up here or proceed to the emergency room if she were to develop chest pain, shortness of breath, hemoptysis, worsening sputum production/purulence, or fever/chills. Patient verbalized understanding and is agreeable with the plan and she was very appreciative of the help. Orders: Orders XR chest 2V Today R05.9 - Cough, unspecified Medications: New benzonatate 100 mg PO TID PRN 10 caps 0RF cough prednisone 40 mg (2 x 20 mg) PO DAILY 10 tabs 0RF Coding Level of Care Code Est Pt Level 3 (50283) Diagnoses Acute lower respiratory tract infection J22
[2024-10-30 13:15] VITALS: BP 120/80; PULSE 83; TEMP 37; O2SAT 96
--- OUTSIDE RECORDS SUMMARY | 2024-10-30 14:35 | XMS_ITS | Clinical Summary ---
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 Name Role Phone Unavailable Primary Care Provider Unavailabl e Source Comments PLEASE NOTE, if this patient is a minor, it may be UNLAWFUL to discuss sensitive information that is contained in these records (such as FAMILY PLANNING, MENTAL HEALTH or SUBSTANCE ABUSE) with the minor patient's parent or other person without the patient's specific authorization.[facility] Immunizations Name Administration Dates Next Due Moderna COVID-19 Vaccine, re d cap blue label, 12+ Primary Series 07/24/2021,12/14/2020,11/16/2020 Social History Tobacco Use Types Packs/Day Years Used Date Smoking Tobacco: Never Assessed Social Connections Answer Date Recorded Connectedness 0 07/28/2024 Financial Resource Strain Answer Date R ecorded Financial Resource Strain 0 2023 Stress Answer Date Recorded Stress 0 07/28/2024 Physical Activity Answer Date Recorded Physical Activity 0 07/28/2024 Food Insecurity Answer Date Recorded Food 0 07/28/2024 Transportation Needs Answer Date Record ed Transportation 0 07/28/2024 Housing Stability Answer Date Recorded Housing 0 07/28/2024 Safety and Environment Answer Date Christiano rded Safety 0 07/28/2024 Utilities Answer Date Recorded Utilities 0 07/28/2024 Employment Answer Date Recorded Stress 0 07/28/2024 Comments Unknown Sex and Gender Information Value Date Recorded Sex Assigned at Not on file Legal Sex Female 8:50 AM PDT Gender Identity Not on file Sexual Orientation Not on file Plan of Treatment Health Maintenance Due Date Last Done Comments Diabetes Screening 1955 Hepatitis C Screening 1955 Lipid Screening 1955 Tobacco Screening 1955 Annual Preventive Care Visit 1973 Hypertension Screening (#1) 1973 Breast Cancer Screening (Mammogram) 1995 CT Colonography 2000 Colonoscopy 2000 Colorectal Cancer Screening 2000 FIT/gFOBT 2000 Fecal DNA 2000 Flexible Sigmoidoscopy 2000 Bone Density Screening 2020 Falls Prevention 2020 Imm-Pneumococcal 65+ (1 of 1 - PCV) 2020 Imm-DTaP/Tdap/Td (2 - Td or Tdap) 11/25/2022 013, 09/15/2007 Alcohol and Drug Screen 09/02/2023 Depression Annual Screen 09/02/2023 [id number] ( season) 2024 07/24/2021, 12/14/2020, 11/16/2020 Imm-Influenza (#1) 2024 06/29/2021, 1 09/24/2019, 08/23/2016, Additional history exists Imm-Zoster, Recombinant Completed 04/21/20, 01/01/2019, 12/13/2015 Insurance [employer] ([facility]) Member Subscriber Plan / Payer (Ef fective 2020-Present) Name:Nury Sterling Relation to Subscriber:Self Name:Nury Sterling Payer ID:[id number] Type:Indemnity Address: [address] [place] [address]
== END 2024-10-30 14:42 | disposition home or self-care (01) ==
PROVIDERS: PCP Internal Medicine; Visit Provider Physician Assistant Medical
DX: J22 Unspecified acute lower respiratory infection (principal)

== ENCOUNTER → 2024-10-30 13:56 | Outpatient (BNV) | payer MEDICARE, SELFPAY | PROVIDERS: PCP Internal Medicine; Visit Provider Radiology Diagnostic Radiology | DX: R05.9 Cough, unspecified (principal) | CPT/HCPCS: 71046 ==

== ENCOUNTER 2025-01-20 14:24 | Outpatient (AMB) | payer MEDICARE, SELFPAY ==
[2025-01-20 14:26] VITALS: BP 102/68; PULSE 74; RESP 18; TEMP 36.8; O2SAT 97; BMI 32.2
--- NOTE | 2025-01-20 14:26 | MHC.PC.OV ---
Vital Signs 01/20/25 14:26 Height 4 ft 10 in Weight 154 lb BMI 32.2 BP 102/68 Blood Pressure Location Rt brachial Position Sitting Respiration 18 Pulse 74 Pulse Source Pulse Oximeter Temp 98.2 F Temp Source Oral Pulse Oximetry (%) 97 Oxygen Delivery Method Room Air Intake Visit Reasons: Annual PE Allergies peach [PEACH] Allergy (Intermediate, Verified 01/20/25 14:28) ITCHY THROAT barley [Barley] Allergy (Unknown, Verified 01/20/25 14:28) + SKIN TEST peanut [PEANUT] Allergy (Unknown, Verified 01/20/25 14:28) + SKIN TEST food allergies Allergy (Unknown, Uncoded 01/20/25 14:28) unknown LOBSTER Allergy (Unknown, Uncoded 01/20/25 14:28) + SKIN TEST nuts Allergy (Unknown, Uncoded 09/13/23 12:39) unknown seasonal Allergy (Unknown, Uncoded 01/20/25 14:28) unknown Medication List - Last Reconciled 01/20/25 by Regina Reyes MD calcium carbonate 600 mg PO BID cholecalciferol (vitamin D3) 25 mcg PO DAILY 90 days denosumab (Prolia) 60 mg subcut [id number] metoprolol tartrate 25 mg PO BID 90 days rivaroxaban (Xarelto) 20 mg PO DAILY simvastatin 20 mg PO DAILY 90 days Tobacco use date assessed: 01/20/25 Fall risk assessment: No Falls in past year Last assessed Fall Risk: 01/20/25 Dental Screening Dental Screen Date: 01/20/25 Did you have a dental visit in the last 12 months?: Yes Did you have a dental problem in the last 6 months where you did not have access to dental care?: No Was dental information given to patient?: Patient has dentist HPI Annual PE HPI Details PE apt - The patient is a 69-year-old female presenting for a wellness visit. - Diverticulosis: Was diagnosed during colonoscopy in 2017. The next screening colonoscopy is scheduled for 2027. - Osteoporosis: Currently managed with Prolia injections every six months. Last endocrinology visit was in July 2023 . - Paroxysmal Atrial Fibrillation: Managed with Metoprolol and Xarelto. Followed by [facility], last seen in August 2023. - Osteoarthritis: Reports knee pain, suspected to be due to arthritis. Takes Tylenol for pain relief. Denies taking any other pain medications. - Hyperlipidemia: Managed with Simvastatin, prescribed by cardiology. Aim to maintain LDL cholesterol below 70 mg/dL. Health Maintenance - Colonoscopy: Last performed in 2017; next due in 2027. - Mammogram: Last completed in June 2024, due in June 2025. - Blood tests: Last performed a year ago during her annual physical exam; new tests ordered during this visit. - Prolia: Administered every six months for osteoporosis. [facility] - Order Entry Administrator: Dr. Ran Funk at [facility]. - Linux Programmer: Dr. Naveen Melissa, for osteoporosis management. Medications - Prolia (Denosumab) for osteoporosis - Metoprolol for atrial fibrillation - Xarelto (Rivaroxaban) for atrial fibrillation - Simvastatin for hyperlipidemia - Vitamin D3 supplement - Calcium supplement (Caltree) Diagnostic results - Labs: Comprehensive blood tests noted one year ago. Patient Instructions - Schedule a fasting blood test as soon as possible. - Continue taking all prescribed medications: Metoprolol, Xarelto, Simvastatin, Vitamin D, and Calcium. - Schedule a follow-up in four months for monitoring. - Book the next annual physical exam. - Take Tylenol only for knee arthritis pain. Review of Systems - General: No fever no chills - Neurological: No headaches no dizziness - Ear nose throat: No sore throat no hearing difficulty no ear pain - Cardiovascular: No syncope, no chest pain, no palpitations - Gastrointestinal: No nausea vomiting or diarrhea - Endocrine: No polyuria polydipsia no heat intolerance - Genitourinary: No dysuria - Skin: No new complaints Physical Exam General: Cooperative, healthy appearing, comfortable, no acute distress Orientation: Patient oriented x3 Head: Normal to inspection Ears: Within normal limit visually Nose: Normal external nose present Face and sinus: Normal facial exam Eyes: Appearance normal, extraocular movement intact pupils reactive Neck: Normal visual inspection and supple Respiratory: Normal respiratory effort and able to speak in complete sentences. Clear to auscultation, no stridor Cardiovascular: S1 and S2 ireg ireg Breast exam benign GI: Normal to inspection. Soft to palpation and nontender Skin: Turgor normal, no acute findings Neuro: Patient oriented x3, motor sensory intact, balance intact, tandem pass Extremities: Normal to inspection, ROM slightly limited left knee. [facility] Medical History Osteoporosis Atrial fibrillation Hyperlipidemia Surgical History History of bladder surgery Family History Mother HTN (hypertension) Diabetes Father Lung cancer Brother Lung cancer Stomach cancer Diabetes Sister Uterus cancer Social History Household Members: Spouse Household Members Other:: sister Housing: House Alcohol intake: current Alcohol intake frequency: holidays/special occasions only Patient Tobacco Use Status: Never used Tobacco e-Cigarette/Vaping Use: Never Used Second Hand Smoke Exposure: Yes service: No Current occupational status: retired Sexual orientation: Straight/Heterosexual Gender identity: Female Cognitive needs: No Hearing needs: No Vision needs: Yes Questionnaire PHQ-9 Over the last 2 weeks, how often have you been bothered by any of the following problems? 1. Little interest or pleasure in doing things: not at all 2. Feeling down, depressed, or hopeless: not at all 3. Trouble falling or staying asleep, or sleeping too much: not at all 4. Feeling tired or having little energy: not at all 5. Poor appetite or overeating: not at all 6. Feeling bad about yourself - or that you are a failure or have let yourself or your family down: not at all 7. Trouble concentrating on things, such as reading the newspaper or watching television: not at all 8. Moving or speaking so slowly that other people could have noticed. Or the opposite - being so fidgety or restless that you have been moving around a lot more than usual: not at all 9. Thoughts that you would be better off or of hurting yourself in some way: not at all Total score: 0 Depression Screening Interpretation: Negative Depression Screening Done: Yes 65072 - PHQ-9 Billing: Yes Source: Developed by Drs. Jasen Fuller, Elizabeth Spencer, Kana Syed and colleagues, with an educational cee from [employer]. Thrive Questionnaire Date Thrive assessed: 01/20/25 I am a: Patient What is your living situation today?: I have a steady place to live Within the past 12 months, did the food you bought not last and you didn't have the money to get more?: Never true Within the past 12 months, did you worry whether your food would run out before you got money to buy more?: Never true Do you have trouble paying for medicines?: No Do you have trouble getting transportation to medical appointments?: No Do you have trouble paying your heating and electricity bill?: No Do you have trouble taking care of your child, family member or friend?: No Do you have trouble with day-to-day activities such as bathing, preparing meals, shopping, managing finances, etc.?: No Are you currently unemployed and looking for a job?: No Are you interested in more education?: No Please select the resources that you would like help with: None Currently or been in a relationship where the following occur: No concerns reported THRIVE Score: 0 AUDIT C Alcohol Use Questionnaire (AUDIT-C) 1. How often do you have a drink containing alcohol?: 2-4 times a month 2. How many drinks containing alcohol do you have on a typical day when you are drinking?: 3 or 4 3. How often do you have six or more drinks on one occasion?: Never Total Score: 3 DARIEN-7 AMB Questionnaire DARIEN-7 Date DARIEN - 7 assessed: 01/20/25 Feeling nervous, anxious, or on edge: 0 = Not at all Not being able to stop or control worryin = Not at all Worrying too much about different things: 0 = Not at all Trouble relaxin = Not at all Being so restless that it is hard to sit still: 0 = Not at all Becoming easily annoyed or irritable: 0 = Not at all Feeling afraid as if something awful might happen: 0 = Not at all Total DARIEN-7 score (0-4 normal; 5-9 mild; 10-14 moderate; 15-21 severe): 0 Source: Developed by Drs. Jasen Fuller, Elizabeth Spencer, Kana Syed and colleagues, with an educational cee from [employer]. Physical exam (Primary Care) Vital Signs: Last Vital Signs Temp 98.2 F 01/20/25 14:26 Pulse 74 01/20/25 14:26 Resp 18 01/20/25 14:26 BP 102/68 01/20/25 14:26 Pulse Ox 97 01/20/25 14:26 Oxygen Delivery Method Room Air 01/20/25 14:26 BMI result Body Mass Index 32.2 Tobacco/Smoking Status: Tobacco use Status Tobacco use date assessed 01/20/25 01/20/25 14:31 Patient Tobacco Use Status Never used Tobacco 01/20/25 14:31 e-Cigarette/Vaping Use Never Used 01/20/25 14:31 PHQ-9: PHQ-9 Score PHQ-9: Total score 0 01/20/25 14:31 Depression Screening Interpretation: Negative Thrive Assessment: Date of Thrive Assessment Date Thrive assessed 01/20/25 01/20/25 14:31 Currently or been in a relationship where the following occur: No concerns reported Coding Level of Care Code Est Pt Level 3 (04544) Est Pt Prev Care >65y(83278) Diagnoses Encounter for general adult medical examination with abnormal findings Z00.01 Paroxysmal atrial fibrillation I48.0 Lipid disorder E78.9 Age-related osteoporosis without current pathological fracture M81.0 Osteoporosis type: age-related Presence of current pathological fracture: without current pathological fracture Vitamin D deficiency E55.9 Osteoarthritis involving multiple joints on both sides of body M15.9 Additional Codes PHQ-9 - 29020 - PHQ-9 Billing: Yes ([id number]) Assessment & Plan Assessment & Plan (1) Encounter for general adult medical examination with abnormal findings: Code(s): Z00.01 - Encounter for general adult medical examination with abnormal findings Category: Medical (2) Paroxysmal atrial fibrillation: Code(s): I48.0 - Paroxysmal atrial fibrillation Category: Medical (3) Lipid disorder: Code(s): E78.9 - Disorder of lipoprotein metabolism, unspecified Category: Medical (4) Osteoporosis: Code(s): M81.0 - Age-related osteoporosis without current pathological fracture Category: Medical Qualifiers: Osteoporosis type: age-related Presence of current pathological fracture: without current pathological fracture Qualified Code(s): M81.0 - Age-related osteoporosis without current pathological fracture (5) Vitamin D deficiency: Code(s): E55.9 - Vitamin D deficiency, unspecified Category: Medical (6) Osteoarthritis involving multiple joints on both sides of body: Code(s): M15.9 - Polyosteoarthritis, unspecified Category: Medical Plan PE apt - The patient is a 69-year-old female presenting for a wellness visit. - Diverticulosis: Was diagnosed during colonoscopy in 2018. The next screening colonoscopy is scheduled for 2027. - Osteoporosis: Currently managed with Prolia injections every six months. Last endocrinology visit was in July 2023 . - Paroxysmal Atrial Fibrillation: Managed with Metoprolol and Xarelto. Followed by [facility], last seen in August 2023. - Osteoarthritis: Reports knee pain, suspected to be due to arthritis. Takes Tylenol for pain relief. Denies taking any other pain medications. - Hyperlipidemia: Managed with Simvastatin, prescribed by cardiology. Aim to maintain LDL cholesterol below 70 mg/dL. Health Maintenance - Colonoscopy: Last performed in 2017; next due in 2027. - Mammogram: Last completed in June 2024, due in June 2025. - Blood tests: Last performed a year ago during her annual physical exam; new tests ordered during this visit. - Prolia: Administered every six months for osteoporosis. [facility] - Order Entry Administrator: Dr. Ran Funk at [facility]. - Linux Programmer: Dr. Naveen Melissa, for osteoporosis management. Medications - Prolia (Denosumab) for osteoporosis - Metoprolol for atrial fibrillation - Xarelto (Rivaroxaban) for atrial fibrillation - Simvastatin for hyperlipidemia - Vitamin D3 supplement - Calcium supplement (Caltree) Diagnostic results - Labs: Comprehensive blood tests noted one year ago. Patient Instructions - Schedule a fasting blood test as soon as possible. - Continue taking all prescribed medications: Metoprolol, Xarelto, Simvastatin, Vitamin D, and Calcium. - Schedule a follow-up in four months for monitoring. - Book the next annual physical exam. - Take Tylenol only for knee arthritis pain. Orders: Orders Complete Blood Count Auto Diff Today E55.9 - Vitamin D deficiency, unspecified, E78.9 - Disorder of lipoprotein metabolism, unspecified, I48.0 - Paroxysmal atrial fibrillation, M15.9 - Polyosteoarthritis, unspecified, M81.0 - Age-related osteoporosis without current pathological fracture, Z00.01 - Encounter for general adult medical examination with abnormal findings Lipid Panel Today E55.9 - Vitamin D deficiency, unspecified, E78.9 - Disorder of lipoprotein metabolism, unspecified, I48.0 - Paroxysmal atrial fibrillation, M15.9 - Polyosteoarthritis, unspecified, M81.0 - Age-related osteoporosis without current pathological fracture, Z00.01 - Encounter for general adult medical examination with abnormal findings Comprehensive Jackson. Panel Fast Today E55.9 - Vitamin D deficiency, unspecified, E78.9 - Disorder of lipoprotein metabolism, unspecified, I48.0 - Paroxysmal atrial fibrillation, M15.9 - Polyosteoarthritis, unspecified, M81.0 - Age-related osteoporosis without current pathological fracture, Z00.01 - Encounter for general adult medical examination with abnormal findings Vitamin D 25-OH (D2 and D3) Today E55.9 - Vitamin D deficiency, unspecified, E78.9 - Disorder of lipoprotein metabolism, unspecified, I48.0 - Paroxysmal atrial fibrillation, M15.9 - Polyosteoarthritis, unspecified, M81.0 - Age-related osteoporosis without current pathological fracture, Z00.01 - Encounter for general adult medical examination with abnormal findings
--- OUTSIDE RECORDS SUMMARY | 2025-01-20 14:41 | XMS_ITS | Clinical Summary ---
Author Organization [facility] Address [address] [place] [address] Care Team Providers Care Certified Histologic Technician Name Role Phone Unavailable Primary Care Provider Unavailabl e Source Comments PLEASE NOTE, if this patient is a minor, it may be UNLAWFUL to discuss sensitive information that is contained in these records (such as FAMILY PLANNING, MENTAL HEALTH or SUBSTANCE ABUSE) with the minor patient's parent or other person without the patient's specific authorization.[facility] Immunizations Immunization Administration Dates Next Due Moderna COVID-19 Vaccine, [...] 1955 Lipid Screening 1955 Tobacco Screening 1955 Hypertension Screening (#1) 1973 Breast Cancer Screening (Mammogram) 1995 CT Colonography 2000 Colonoscopy 2000 Colorectal Cancer Screening 2000 FIT/gFOBT 2000 Fecal DNA 2000 Flexible Sigmoidoscopy 2000 Imm-Pneumococcal 65+ (1 of 1 - PCV) 2005 Bone Density Screening 2020 Falls Prevention 2020 Imm-DTaP/Tdap/Td (2 - Td or Tdap) 11/25/2022 013, 09/15/2007 [id number] ( season) 2024 07/24/2021, 12/14/2020, 11/16/2020 Imm-Influenza (#1) 2024 06/29/2021, 1 09/24/2019, 08/23/2016, Additional history exists Alcohol and Drug Screen 09/02/2024 Depression Annual Screen 09/02/2024 Imm-Zoster, Recombinant Completed 04/21/20, 01/01/2019, 12/13/2015 Insurance HNE ([facility]) Member Subscriber Plan / Payer (Ef fective 2020-Present) Name:Nury Sterling Relation to Subscriber:Self Name:Nury Sterling Payer ID:[id number] Type:Indemnity Address: [address] [place] [address]
== END 2025-01-20 14:57 | disposition home or self-care (01) ==
LOC: HO.HMCC 14:25
PROVIDERS: PCP Internal Medicine; Visit Provider Internal Medicine
DX: Z00.01 Encounter for general adult medical examination with abnormal findings (principal); I48.0 Paroxysmal atrial fibrillation; E78.9 Disorder of lipoprotein metabolism, unspecified; M81.0 Age-related osteoporosis without current pathological fracture; E55.9 Vitamin D deficiency, unspecified; M15.9 Polyosteoarthritis, unspecified

== ENCOUNTER → 2025-01-20 14:24 | Outpatient (BNVA) | payer MEDICARE, SELFPAY | PROVIDERS: PCP Internal Medicine; Visit Provider Internal Medicine | DX: Z00.01 Encounter for general adult medical examination with abnormal findings (principal); M81.0 Age-related osteoporosis without current pathological fracture; I48.0 Paroxysmal atrial fibrillation; E78.5 Hyperlipidemia, unspecified; E55.9 Vitamin D deficiency, unspecified; M15.9 Polyosteoarthritis, unspecified; Z79.01 Long term (current) use of anticoagulants; Z79.899 Other long term (current) drug therapy | CPT/HCPCS: 96127; 99397 ==

== ENCOUNTER 2025-01-26 06:29 | Outpatient (REF) | payer MEDICARE, SELFPAY ==
--- OUTSIDE RECORDS SUMMARY | 2025-01-26 06:31 | XMS_ITS | Clinical Summary ---
Author Organization [facility] Address [address] [place] [address] Care Team Providers Care Senior J2Ee Developer Name Role Phone Unavailable Primary Care Provider [...] - Td or Tdap) 11/25/2022 013, 09/15/2007 [id number] ( season) 2024 07/24/2021, 12/14/2020, 11/16/2020 Imm-Influenza (#1) 2024 06/29/2021, 1 09/24/2019, 08/23/2016, Additional history exists Alcohol and Drug Screen 09/02/2024 Depression Annual Screen 09/02/2024 Imm-Zoster, Recombinant Completed 04/21/20, 01/01/2019, 12/13/2015 Insurance HNE ([facility]) Member Subscriber Plan / Payer (Ef fective 2020-Present) Name:Nury Sterling Relation to Subscriber:Self Name:Nury Sterling Payer ID:[id number] Type:Indemnity Address: [address] [place] [address]
[2025-01-26 06:41] LABS: MANUAL DIFF FLAG NO
[2025-01-26 07:17] LABS: Basophils Percent Auto 0.6 % (0-2); Eosinophils Absolute Auto 0.4 X10*3/uL (0.0-0.4); Eosinophils Percent Auto 5.6 % (0-4); Hematocrit 38.4 % (37.0-47.0); Imm Gran Abs Auto 0.01 X10*3/uL (0.00-0.03); Imm Gran Pct Auto 0.1 % (0.0-0.4); Lymphocytes Absolute Auto 2.8 X10*3/uL (1.2-4.9); Lymphocytes Percent Auto 39.5 % (20-40); Mean Corpuscular HGB Conc 33.9 g/dl (31.0-35.0); Mean Corpuscular Volume 88.5 fL (80.0-98.0); Mean Platelet Volume 11.5 fL (9.4-12.3); Monocytes Absolute Auto 0.5 X10*3/uL (0.1-1.2); Monocytes Percent Auto 6.5 % (2-11); Neutrophils Absolute Auto 3.3 x10*3/uL (2.0-8.3); Neutrophils Percent Auto 47.7 % (45-73); Platelet Count 292 X10*3/uL (160-400); Red Blood Count 4.34 X10*6/uL (4.20-5.50); Red Cell Distribution Width 13.2 % (11.0-16.0)
[2025-01-26 07:58] LABS: Alanine Aminotransferase 19 U/L (0-31); Albumin Level 4.1 g/dL (3.5-5.0); Alkaline Phosphatase 91 U/L (39-117); Anion Gap 10 (12-20); Aspartate Amino Transferase 21 U/L (5-31); Bilirubin Total 0.5 mg/dL (0.0-1.0); Blood Urea Nitrogen 16 mg/dL (9-16); Calcium 9.1 mg/dL (8.4-10.2); Carbon Dioxide 27 mmol/L (22-29); Chloride 108 mmol/L (96-108); Cholesterol 219 mg/dL (<200); Estimated Glomerular Filt Rate > 60; Glucose Fasting 92 mg/dL (60-99); HDL Cholesterol 56 mg/dL (>40); LDL Cholesterol Calculated 136 mg/dL (<100); Potassium 4.1 mmol/L (3.3-5.1); Sodium 141 mmol/L (135-145); Total Protein 7.6 g/dL (6.5-8.0); Triglycerides 138 mg/dL (<150)
[2025-01-29 10:44] LABS: Vitamin D 25-OH, D2 <4 ng/mL; Vitamin D 25-OH, D3 51 ng/mL; Vitamin D 25-OH, Total 51 ng/mL (30-100)
== END 2025-01-26 06:30 | disposition home or self-care (01) ==
LOC: HO.LAB 06:29
PROVIDERS: PCP Internal Medicine; Visit Provider Internal Medicine
DX: Z00.01 Encounter for general adult medical examination with abnormal findings (principal); M81.0 Age-related osteoporosis without current pathological fracture; E55.9 Vitamin D deficiency, unspecified; I48.0 Paroxysmal atrial fibrillation; E78.9 Disorder of lipoprotein metabolism, unspecified; M15.9 Polyosteoarthritis, unspecified
CPT/HCPCS: 36415; 80053; 80061; 82306; 85025

== ENCOUNTER 2025-03-02 11:54 | Outpatient (AMB) | payer MEDICARE, SELFPAY ==
[2025-03-02 11:55] VITALS: BP 120/76; PULSE 66; TEMP 36.7; O2SAT 97; BMI 32.2
--- NOTE | 2025-03-02 11:55 | MHC.OFFWIV ---
Intake Vital Signs 03/02/25 11:55 Height 4 ft 10 in Weight 154 lb BMI 32.2 BP 120/76 Blood Pressure Location Rt brachial Position Sitting Pulse 66 Pulse Source Pulse Oximeter Temp 98.1 F Temp Source Oral Pulse Oximetry (%) 97 Oxygen Delivery Method Room Air Intake Visit Reasons: EP pain on LT arm due to a fall Intake Note: pt presents with left arm and shoulder pain s/p fall 2 weeks ago Patient Tobacco Use Status: Never used Tobacco Allergies peach (PEACH) Allergy (Intermediate, Verified 03/02/25 11:56) ITCHY THROAT barley (Barley) Allergy (Unknown, Verified 03/02/25 11:56) + SKIN TEST peanut (PEANUT) Allergy (Unknown, Verified 03/02/25 11:56) + SKIN TEST food allergies Allergy (Unknown, Uncoded 01/20/25 14:28) unknown LOBSTER Allergy (Unknown, Uncoded 01/20/25 14:28) + SKIN TEST nuts Allergy (Unknown, Uncoded 09/13/23 12:39) unknown seasonal Allergy (Unknown, Uncoded 01/20/25 14:28) unknown Do you need a note to return to daycare/school/sports/work: No HPI HPI Comments History of Present Illness Details History of Present Illness - The patient is a 69-year-old female presenting with shoulder pain following a fall. - The patient reports falling on her driveway two weeks ago, landing on her arm and knee. - She is experiencing pain primarily in the left shoulder, with some discomfort in the knee. - The pain is exacerbated by certain movements, such as putting on a bra or reaching behind her back. - There is no numbness or tingling in the arm. - She denies neck pain, back pain, arm pain, elbow pain, wrist pain, or hand pain. - She is right hand dominant. Physical Exam General: Cooperative, healthy appearing, comfortable, no acute distress and well developed Neck: Normal visual inspection, full ROM Respiratory: Normal respiratory effort and able to speak in complete sentences. Skin: No rashes or lesions noted Neuro: Patient oriented x3, CN 2-12 intact, gait normal, sensation is intact. Back/spine: no TTP cervical, thoracic or lumbar spine. No step offs noted. Extremities: FROM of the left shoulder. No click noted. No TTP of the left clavicle, AC joint, bicep, bicipital groove, or trapezius. FROM of the elbow and wrist. Hand retirement benefits specialist is intact. Strength is 5/5 on the UE on the left. Patient was informed and verbally consented to the use of an ambient scribe for clinic note documentation during this visit. [facility] Medical History Osteoporosis Atrial fibrillation Hyperlipidemia Surgical History History of bladder surgery Family History Mother HTN (hypertension) Diabetes Father Lung cancer Brother Lung cancer Stomach cancer Diabetes Sister Uterus cancer Social History Household Members: Spouse Household Members Other:: sister Housing: House Alcohol intake: current Alcohol intake frequency: holidays/special occasions only Patient Tobacco Use Status: Never used Tobacco e-Cigarette/Vaping Use: Never Used Second Hand Smoke Exposure: Yes service: No Current occupational status: retired Sexual orientation: Straight/Heterosexual Gender identity: Female Cognitive needs: No Hearing needs: No Vision needs: Yes Review of Systems Const All systems reviewed & are unremarkable except as noted in HPI and below Physical Exam Vital Signs: Last Vital Signs Temp 98.1 F 03/02/25 11:55 Pulse 66 03/02/25 11:55 BP 120/76 03/02/25 11:55 Pulse Ox 97 03/02/25 11:55 Oxygen Delivery Method Room Air 03/02/25 11:55 BMI result Body Mass Index 32.2 Results Reviewed Results Reviewed: Reviewed the x-ray and shows some arthritis, no fracture Assessment & Plan Assessment & Plan (1) Shoulder pain, left: Code(s): M25.512 - Pain in left shoulder Qualifiers: Chronicity: acute Qualified Code(s): M25.512 - Pain in left shoulder Plan Most likely strain vs AC separation vs fracture Plan - Plan to obtain a shoulder X-ray to assess for any fractures or dislocations. - Rest, ice or heat to the area. - Activities as tolerated. - Offered her a sling and she declined. - Tylenol, motrin or Aleve as needed for pain. - Consideration of physical therapy if imaging is unremarkable and pain persists. Orders: Orders XR shoulder LT min 2V Today M25.512 - Pain in left shoulder Coding Level of Care Code Est Pt Level 4 (73951) Diagnoses Acute pain of left shoulder M25.512 Chronicity: acute
--- OUTSIDE RECORDS SUMMARY | 2025-03-02 13:04 | XMS_ITS | Clinical Summary ---
Author Organization [facility] Address [address] [place] [address] Care Team Providers Care Volumetric Weigher Name Role Phone Unavailable Primary Care Provider [...] Fecal DNA 2000 Flexible Sigmoidoscopy 2000 Imm-Pneumococcal 50+ (1 of 1 - PCV) 2005 Bone Density Screening 2020 Falls Prevention 2020 Imm-DTaP/Tdap/Td (2 - Td or Tdap) 11/25/2022 013, 09/15/2007 [id number] ( season) 2024 07/24/2021, 12/14/2020, 11/16/2020 Imm-Influenza (#1) 2024 06/29/2021, 1 09/24/2019, 08/23/2016, Additional history exists Alcohol and Drug Screen 09/02/2024 Depression Annual Screen 09/02/2024 Imm-Zoster, Recombinant Completed 04/21/20, 01/01/2019, 12/13/2015 Insurance HNE ([facility]) Member Subscriber Plan / Payer (Ef fective 2020-Present) Name:Nury Sterling Relation to Subscriber:Self Name:Nury Sterling Payer ID:[id number] Type:Indemnity Address: [address] [place] [address]
--- OUTSIDE RECORDS SUMMARY | 2025-03-02 13:04 | XMS_ITS | Patient Health Record ---
Author Organization [facility] Address [address] [place] [address] Care Team Providers Care Steamer Tender Name Role Phone Milagros Jasen Unavailable [phone] Reason For Referral No Information Plan Of Treatment No Information
== END 2025-03-02 13:17 | disposition home or self-care (01) ==
PROVIDERS: PCP Internal Medicine; Visit Provider Physician Assistant Medical
DX: M25.512 Pain in left shoulder (principal)

== ENCOUNTER 2025-03-02 11:54 | Outpatient (REF) | payer MEDICARE, SELFPAY ==
--- NOTE | ~2025-03-02 | XR_ITS ---
EXAMINATION: XR SHOULDER, LEFT CLINICAL INFORMATION: M25.512 - Pain in left shoulder since falling 2 weeks ago COMPARISON: July 21, 2018 TECHNIQUE: AP external rotation, Grashey, and scapular Y view of the left shoulder. FINDINGS: Mild degenerative changes present in the AC joint. There is no AC joint separation. Glenohumeral joint is intact. XR/XR shoulder LT min 2V IMPRESSION: Mild AC joint arthropathy. Electronically signed by: Liborio Quezada MD 03/02/2025 01:00 PM EDT
== END 2025-03-02 11:55 | disposition home or self-care (01) ==
LOC: HO.HMGCX 11:54
PROVIDERS: PCP Internal Medicine; Visit Provider Physician Assistant Medical
DX: M25.512 Pain in left shoulder (principal); Z91.81 History of falling
CPT/HCPCS: 73030; 99212

== ENCOUNTER → 2025-03-02 12:43 | Outpatient (BNV) | payer MEDICARE, SELFPAY | PROVIDERS: PCP Internal Medicine; Visit Provider Radiology Diagnostic Radiology | DX: M19.012 Primary osteoarthritis, left shoulder (principal) | CPT/HCPCS: 73030 ==

== ENCOUNTER 2025-05-05 14:38 | Outpatient (AMB) | payer MEDICARE, SELFPAY ==
--- OUTSIDE RECORDS SUMMARY | 2025-05-05 16:53 | XMS_ITS | Clinical Summary ---
Author Organization [facility] Address [address] [place] [address] Care Team Providers Care Erp Technical Lead Name Role Phone Unavailable Primary Care Provider [...] - Td or Tdap) 11/25/2022 013, 09/15/2007 [id number] ( season) 2024 07/24/2021, 12/14/2020, 11/16/2020 Alcohol and Drug Screen 09/02/2024 Depression Annual Screen 09/02/2024 Imm-Influenza (#1) 2025 06/29/2021, 1 09/24/2019, 08/23/2016, Additional history exists Imm-Zoster, Recombinant Completed 04/21/20, 01/01/2019, 12/13/2015 Insurance HNE ([facility]) Member Subscriber Plan / Payer (Ef fective 2020-Present) Name:Nury Sterling Relation to Subscriber:Self Name:Nury Sterling Payer ID:[id number] Type:Indemnity Address: [address] [place] [address]
--- OUTSIDE RECORDS SUMMARY | 2025-05-05 16:53 | XMS_ITS | Patient Health Record ---
Author Organization [facility] Address [address] [place] [address] Care Team Providers Care Creative/Art Director Name Role Phone LinaresJasen Unavailable [phone] Reason For Referral No Information Plan Of Treatment No Information
== END 2025-05-05 14:57 | disposition home or self-care (01) ==
LOC: HO.HMGAL 14:38
PROVIDERS: PCP Internal Medicine; Visit Provider Registered Nurse Emergency
DX: J30.89 Other allergic rhinitis (principal)
CPT/HCPCS: 95117; 95165

== ENCOUNTER 2025-05-19 09:50 | Outpatient (AMB) | payer MEDICARE, SELFPAY ==
--- OUTSIDE RECORDS SUMMARY | 2025-05-19 11:40 | XMS_ITS | Clinical Summary ---
Author Organization [facility] Address [address] [place] [address] Care Team Providers Care Real Estate Services Administrator Name Role Phone Unavailable Primary Care Provider [...] 11/25/2022 013, 09/15/2007 Alcohol and Drug Screen 09/02/2024 Depression Annual Screen 09/02/2024 [id number] ( season) 2025 07/24/2021, 12/14/2020, 11/16/2020 Imm-Influenza (#1) 2025 06/29/2021, 1 09/24/2019, 08/23/2016, Additional history exists Imm-Zoster, Recombinant Completed 04/21/20, 01/01/2019, 12/13/2015 Insurance HNE ([facility]) Member Subscriber Plan / Payer (Ef fective 2020-Present) Name:Nury Sterling Relation to Subscriber:Self Name:Nury Sterling Payer ID:[id number] Type:Indemnity Address: [address] [place] [address]
--- OUTSIDE RECORDS SUMMARY | 2025-05-19 11:40 | XMS_ITS | Patient Health Record ---
Author Organization [facility] Address [address] [place] [address] Care Team Providers Care Jack Frame Tender Name Role Phone Jasen Linares Unavailable [phone] Reason For Referral No Information Plan Of Treatment No Information
== END 2025-05-19 09:51 | disposition home or self-care (01) ==
LOC: HO.HMGAL 09:50
PROVIDERS: PCP Internal Medicine; Visit Provider Registered Nurse Emergency
DX: J30.89 Other allergic rhinitis (principal)
CPT/HCPCS: 95117; 95165

== ENCOUNTER 2025-05-25 13:18 | Outpatient (AMB) | payer MEDICARE, SELFPAY ==
[2025-05-25 13:20] VITALS: BP 110/76; PULSE 70; O2SAT 98; BMI 31.8
--- NOTE | 2025-05-25 13:20 | MHC.PC.OV ---
Vital Signs 05/25/25 13:20 Height 4 ft 10 in Weight 152 lb 2 oz BMI 31.8 BP 110/76 Blood Pressure Location Lt brachial Position Sitting Pulse 70 Pulse Source Pulse Oximeter Pulse Oximetry (%) 98 Intake Visit Reasons: 4m f/u Station Installation Supervisor Required: No Accompanied by: Self / Same As Patient Allergies peach (PEACH) Allergy (Intermediate, Verified 05/25/25 13:26) ITCHY THROAT barley (Barley) Allergy (Unknown, Verified 05/25/25 13:26) + SKIN TEST peanut (PEANUT) Allergy (Unknown, Verified 05/25/25 13:26) + SKIN TEST food allergies Allergy (Unknown, Uncoded 01/20/25 14:28) unknown LOBSTER Allergy (Unknown, Uncoded 01/20/25 14:28) + SKIN TEST nuts Allergy (Unknown, Uncoded 09/13/23 12:39) unknown seasonal Allergy (Unknown, Uncoded 01/20/25 14:28) unknown Medication List - Last Reconciled 05/25/25 by Regina Reyes MD calcium carbonate 600 mg PO BID cholecalciferol (vitamin D3) 25 mcg PO DAILY 90 days denosumab (Prolia) 60 mg subcut [id number] metoprolol tartrate 25 mg PO BID 90 days rivaroxaban (Xarelto) 20 mg PO DAILY simvastatin 20 mg PO DAILY 90 days Tobacco use date assessed: 01/20/25 Fall risk assessment: No Falls in past year Last assessed Fall Risk: 05/25/25 Dental Screening Dental Screen Date: 01/20/25 HPI 4m f/u HPI Details History of Present Illness The patient is a 69-year-old female presenting with arthritis-related pain. And six-month follow-up appointment Arthritis: - Diagnosed with arthritis, with pain primarily affecting the left shoulder and knee. - Shoulder X-ray performed in March confirmed the presence of arthritis. AC joint - Experiencing chronic pain that is not alleviated by OTC meds - Reports improvement with rest and spiritual practices. - Has been advised to take Tylenol for pain management due to contraindications of NSAIDs with current blood thinner medication. Medical History: - Paroxysmal atrial fibrillation - Arthritis - lipid disorder - osteoporosis - obesity with BMI of 31 point it Medications: - Metoprolol 25 mg, twice a day, for paroxysmal atrial fibrillation. - Xarelto 20 mg, once daily, for anticoagulation management due to paroxysmal atrial fibrillation. - Simvastatin 20 mg, for cholesterol management. - Vitamin D, for supplementation. - Prolia injections every six months, for osteoporosis. Social History: - The patient planned her medical visit to accommodate a subsequent dental appointment, demonstrating active engagement in her healthcare management. Diagnostic Results: - Shoulder X-ray in March showed arthritis. - Blood tests last conducted in December, and due for another testing as part of routine monitoring. Problem List - Arthritis - Paroxysmal Atrial Fibrillation - osteoporosis - obesity - lipid disorder - vitamin-D deficiency Patient Instructions - Undergo the recommended blood test within the next few days. - Use Tylenol for pain management, avoiding NSAIDs due to blood thinner use. - Plan to have the fasting blood test before the next appointment in December. - Follow up with the home comfort advisor in September 2024 - Obtain a flu vaccine from the pharmacy at her convenience. Review of Systems - General: No fever no chills - Neurological: No headaches no dizziness - Ear nose throat: No sore throat no hearing difficulty no ear pain - Cardiovascular: No syncope, no chest pain - Gastrointestinal: No nausea vomiting or diarrhea - Endocrine: No polyuria polydipsia no heat intolerance - Genitourinary: No dysuria , no blood in urine Physical Exam General: No acute distress HEENT: No acute findings Neck: Supple Respiratory system: Able to talk in full sentences, no audible wheeze Cardiovascular: S1-S2 regular in rate and rhythm at this time Gastrointestinal: No pain Extremities: Left shoulder and knee pain due to arthritis, limited range of motion of left shoulder AIR MOVING TECHNICIAN: Alert awake oriented x3 motor intact Skin: Normal turgor Patient was informed and verbally consented to the use of an ambient scribe for clinic note documentation during this visit. [facility] Medical History Osteoporosis Atrial fibrillation Hyperlipidemia Surgical History History of bladder surgery Family History Mother HTN (hypertension) Diabetes Father Lung cancer Brother Lung cancer Stomach cancer Diabetes Sister Uterus cancer Social History Household Members: Spouse Household Members Other:: sister Housing: House Alcohol intake: current Alcohol intake frequency: holidays/special occasions only Patient Tobacco Use Status: Never used Tobacco e-Cigarette/Vaping Use: Never Used Second Hand Smoke Exposure: Yes service: No Current occupational status: retired Sexual orientation: Straight/Heterosexual Gender identity: Female Cognitive needs: No Hearing needs: No Vision needs: Yes Questionnaire PHQ-9 Over the last 2 weeks, how often have you been bothered by any of the following problems? 1. Little interest or pleasure in doing things: not at all 2. Feeling down, depressed, or hopeless: not at all 3. Trouble falling or staying asleep, or sleeping too much: not at all 4. Feeling tired or having little energy: not at all 5. Poor appetite or overeating: not at all 6. Feeling bad about yourself - or that you are a failure or have let yourself or your family down: not at all 7. Trouble concentrating on things, such as reading the newspaper or watching television: not at all 8. Moving or speaking so slowly that other people could have noticed. Or the opposite - being so fidgety or restless that you have been moving around a lot more than usual: not at all 9. Thoughts that you would be better off or of hurting yourself in some way: not at all Total score: 0 Depression Screening Interpretation: Negative Depression Screening Done: Yes 27666 - PHQ-9 Billing: Yes Source: Developed by Drs. Jasen Fuller, Elizabeth Spencer, Kana Syed and colleagues, with an educational cee from [employer] Thrive Questionnaire Date Thrive assessed: 01/20/25 I am a: Patient What is your living situation today?: I have a steady place to live Within the past 12 months, did the food you bought not last and you didn't have the money to get more?: Never true Within the past 12 months, did you worry whether your food would run out before you got money to buy more?: Never true Do you have trouble paying for medicines?: No Do you have trouble getting transportation to medical appointments?: No Do you have trouble paying your heating and electricity bill?: No Do you have trouble taking care of your child, family member or friend?: No Do you have trouble with day-to-day activities such as bathing, preparing meals, shopping, managing finances, etc.?: No Are you currently unemployed and looking for a job?: No Are you interested in more education?: No Please select the resources that you would like help with: None Currently or been in a relationship where the following occur: No concerns reported THRIVE Score: 0 AUDIT C Alcohol Use Questionnaire (AUDIT-C) 1. How often do you have a drink containing alcohol?: 2-4 times a month 2. How many drinks containing alcohol do you have on a typical day when you are drinking?: 3 or 4 3. How often do you have six or more drinks on one occasion?: Never Total Score: 3 DARIEN-7 AMB Questionnaire DARIEN-7 Date DARIEN - 7 assessed: 01/20/25 Feeling nervous, anxious, or on edge: 0 = Not at all Not being able to stop or control worryin = Not at all Worrying too much about different things: 0 = Not at all Trouble relaxin = Not at all Being so restless that it is hard to sit still: 0 = Not at all Becoming easily annoyed or irritable: 0 = Not at all Feeling afraid as if something awful might happen: 0 = Not at all Total DARIEN-7 score (0-4 normal; 5-9 mild; 10-14 moderate; 15-21 severe): 0 Source: Developed by Drs. Jasen Fuller, Elizabeth Spencer, Kana Syed and colleagues, with an educational cee from [employer] DARIEN-7 Assessment Billing DARIEN-7 Assessment Tool: DARIEN-7 Assessment 11109 Physical exam (Primary Care) Vital Signs: Last Vital Signs Pulse 70 05/25/25 13:20 BP 110/76 05/25/25 13:20 Pulse Ox 98 05/25/25 13:20 BMI result Body Mass Index 31.8 Tobacco/Smoking Status: Tobacco use Status Tobacco use date assessed 01/20/25 05/25/25 13:22 Patient Tobacco Use Status Never used Tobacco 05/25/25 13:22 e-Cigarette/Vaping Use Never Used 05/25/25 13:22 PHQ-9: PHQ-9 Score PHQ-9: Total score 0 05/25/25 13:22 Depression Screening Interpretation: Negative Thrive Assessment: Date of Thrive Assessment Date Thrive assessed 01/20/25 05/25/25 13:22 Currently or been in a relationship where the following occur: No concerns reported Coding Level of Care Code Est Pt Level 4 (55241) Diagnoses Paroxysmal atrial fibrillation I48.0 Lipid disorder E78.9 Age-related osteoporosis without current pathological fracture M81.0 Osteoporosis type: age-related Presence of current pathological fracture: without current pathological fracture Vitamin D deficiency E55.9 Chronic left shoulder pain M25.512; G89.29 Chronicity: chronic Arthritis of left acromioclavicular joint M19.012 Laterality: left Osteoarthritis involving multiple joints on both sides of body M15.9 Class 1 obesity due to excess calories with serious comorbidity and body mass index (BMI) of 30.0 to 30.9 in adult E66.09; Z68.30 Obesity classification: adult class 1 (BMI 30 - 34.9) Serious obesity comorbidity presence: with serious comorbidity Body mass index: BMI 30.0-30.9 Additional Codes PHQ-9 - 49106 - PHQ-9 Billing: Yes ([id number]) DARIEN-7 Assessment Billing - DARIEN-7 Assessment Tool: DARIEN-7 Assessment 01070 ([id number]) Assessment & Plan Assessment & Plan (1) Paroxysmal atrial fibrillation: Code(s): I48.0 - Paroxysmal atrial fibrillation Category: Medical (2) Lipid disorder: Code(s): E78.9 - Disorder of lipoprotein metabolism, unspecified Category: Medical (3) Osteoporosis: Code(s): M81.0 - Age-related osteoporosis without current pathological fracture Category: Medical Qualifiers: Osteoporosis type: age-related Presence of current pathological fracture: without current pathological fracture Qualified Code(s): M81.0 - Age-related osteoporosis without current pathological fracture (4) Vitamin D deficiency: Code(s): E55.9 - Vitamin D deficiency, unspecified Category: Medical (5) Shoulder pain, left: Code(s): M25.512 - Pain in left shoulder Qualifiers: Chronicity: chronic Qualified Code(s): M25.512 - Pain in left shoulder; G89.29 - Other chronic pain (6) Acromioclavicular joint arthritis: Code(s): M19.019 - Primary osteoarthritis, unspecified shoulder Category: Medical Qualifiers: Laterality: left Qualified Code(s): M19.012 - Primary osteoarthritis, left shoulder (7) Osteoarthritis involving multiple joints on both sides of body: Code(s): M15.9 - Polyosteoarthritis, unspecified Category: Medical (8) Obesity due to excess calories: Code(s): E66.09 - Other obesity due to excess calories Category: Medical Qualifiers: Obesity classification: adult class 1 (BMI 30 - 34.9) Serious obesity comorbidity presence: with serious comorbidity Body mass index: BMI 30.0-30.9 Qualified Code(s): E66.09 - Other obesity due to excess calories; Z68.30 - Body mass index [BMI] 30.0-30.9, adult Plan History of Present Illness The patient is a 69-year-old female presenting with arthritis-related pain. And six-month follow-up appointment Arthritis: - Diagnosed with arthritis, with pain primarily affecting the left shoulder and knee. - Shoulder X-ray performed in March confirmed the presence of arthritis. AC joint - Experiencing chronic pain that is not alleviated by OTC meds - Reports improvement with rest and spiritual practices. - Has been advised to take Tylenol for pain management due to contraindications of NSAIDs with current blood thinner medication. Medical History: - Paroxysmal atrial fibrillation - Arthritis - lipid disorder - osteoporosis - obesity with BMI of 31 point it Medications: - Metoprolol 25 mg, twice a day, for paroxysmal atrial fibrillation. - Xarelto 20 mg, once daily, for anticoagulation management due to paroxysmal atrial fibrillation. - Simvastatin 20 mg, for cholesterol management. - Vitamin D, for supplementation. - Prolia injections every six months, for osteoporosis. Social History: - The patient planned her medical visit to accommodate a subsequent dental appointment, demonstrating active engagement in her healthcare management. Diagnostic Results: - Shoulder X-ray in March showed arthritis. - Blood tests last conducted in December, and due for another testing as part of routine monitoring. Problem List - Arthritis - Paroxysmal Atrial Fibrillation - osteoporosis - obesity - lipid disorder - vitamin-D deficiency Patient Instructions - Undergo the recommended blood test within the next few days. - Use Tylenol for pain management, avoiding NSAIDs due to blood thinner use. - Plan to have the fasting blood test before the next appointment in December. - Follow up with the home comfort advisor in September 2024 - Obtain a flu vaccine from the pharmacy at her convenience. Orders: Orders Complete Blood Count Auto Diff Today E78.9 - Disorder of lipoprotein metabolism, unspecified, I48.0 - Paroxysmal atrial fibrillation, M81.0 - Age-related osteoporosis without current pathological fracture Comprehensive Met. Panel Today E78.9 - Disorder of lipoprotein metabolism, unspecified, I48.0 - Paroxysmal atrial fibrillation, M81.0 - Age-related osteoporosis without current pathological fracture Complete Blood Count Auto Diff 6 Months E55.9 - Vitamin D deficiency, unspecified, E78.9 - Disorder of lipoprotein metabolism, unspecified, I48.0 - Paroxysmal atrial fibrillation, M81.0 - Age-related osteoporosis without current pathological fracture Comprehensive [place]. Panel Fast 6 Months E55.9 - Vitamin D deficiency, unspecified, E78.9 - Disorder of lipoprotein metabolism, unspecified, I48.0 - Paroxysmal atrial fibrillation, M81.0 - Age-related osteoporosis without current pathological fracture Lipid Panel 6 Months E55.9 - Vitamin D deficiency, unspecified, E78.9 - Disorder of lipoprotein metabolism, unspecified, I48.0 - Paroxysmal atrial fibrillation, M81.0 - Age-related osteoporosis without current pathological fracture Vitamin D 25-OH (D2 and D3) 6 Months E55.9 - Vitamin D deficiency, unspecified, E78.9 - Disorder of lipoprotein metabolism, unspecified, I48.0 - Paroxysmal atrial fibrillation, M81.0 - Age-related osteoporosis without current pathological fracture
--- OUTSIDE RECORDS SUMMARY | 2025-05-25 16:19 | XMS_ITS | Patient Health Record ---
Author Organization [facility] Address [address] [place] [address] Care Team Providers Care Slip Cover Operator Name Role Phone Milagros Jasen Unavailable [phone] Reason For Referral No Information Plan Of Treatment No Information
--- OUTSIDE RECORDS SUMMARY | 2025-05-25 16:20 | XMS_ITS | Clinical Summary ---
Author Organization [facility] Address [address] [place] [address] Care Team Providers Care Territory Representative Name Role Phone Unavailable Primary Care Provider [...] Drug Screen 09/02/2024 Depression Annual Screen 09/02/2024 [id number] ( season) 2025 07/24/2021, 12/14/2020, 11/16/2020 Imm-Influenza (#1) 2025 06/29/2021, 1 09/24/2019, 08/23/2016, Additional history exists Imm-Zoster, Recombinant Completed 04/21/20, 01/01/2019, 12/13/2015 Insurance HNE ([facility]) Member Subscriber Plan / Payer (Ef fective 2020-Present) Name:Nury Sterling Relation to Subscriber:Self Name:Nury Sterling Payer ID:[id number] Type:Indemnity Address: [address] [place] [address]
== END 2025-05-25 15:04 | disposition home or self-care (01) ==
LOC: HO.HMCC 13:19
PROVIDERS: PCP Internal Medicine; Visit Provider Internal Medicine
DX: I48.0 Paroxysmal atrial fibrillation (principal); E78.9 Disorder of lipoprotein metabolism, unspecified; M81.0 Age-related osteoporosis without current pathological fracture; E55.9 Vitamin D deficiency, unspecified; M25.512 Pain in left shoulder; G89.29 Other chronic pain; M19.012 Primary osteoarthritis, left shoulder; M15.9 Polyosteoarthritis, unspecified; E66.09 Other obesity due to excess calories; Z68.30 Body mass index [BMI] 30.0-30.9, adult

== ENCOUNTER 2025-05-25 13:18 | Outpatient (REF) | payer MEDICARE, SELFPAY ==
[2025-05-25 16:39] LABS: MANUAL DIFF FLAG NO
[2025-05-25 16:42] LABS: Hematocrit 36.9 % (37.0-47.0); Hemoglobin 12.3 g/dl (12.0-16.0); Imm Gran Abs Auto 0.02 X10*3/uL (0.00-0.03); Imm Gran Pct Auto 0.3 % (0.0-0.4); Lymphocytes Absolute Auto 2.3 X10*3/uL (1.2-4.9); Mean Corpuscular HGB Conc 33.3 g/dl (31.0-35.0); Mean Corpuscular Hemoglobin 29.9 pg (27.0-33.0); Mean Corpuscular Volume 89.6 fL (80.0-98.0); NRBC Abs Auto 0.000 X10*3/uL (0.0-0.012); NRBC Pct Auto 0.0 /100WBC (0.0-0.2); Platelet Count 270 X10*3/uL (160-400); Red Blood Count 4.12 X10*6/uL (4.20-5.50); White Blood Count 6.5 X10*3/uL (4.8-10.8)
[2025-05-25 17:00] LABS: Alanine Aminotransferase 14 U/L (0-31); Albumin Level 3.9 g/dL (3.5-5.0); Alkaline Phosphatase 77 U/L (39-117); Anion Gap 8 (12-20); Aspartate Amino Transferase 22 U/L (5-31); Blood Urea Nitrogen 15 mg/dL (9-16); Calcium 9.0 mg/dL (8.4-10.2); Carbon Dioxide 29 mmol/L (22-29); Chloride 107 mmol/L (96-108); Estimated Glomerular Filt Rate > 60; Potassium 4.1 mmol/L (3.3-5.1); Sodium 140 mmol/L (135-145); Total Protein 7.1 g/dL (6.5-8.0)
== END 2025-05-25 13:19 | disposition home or self-care (01) ==
LOC: HO.HMGCLDS 13:18
PROVIDERS: PCP Internal Medicine; Visit Provider Internal Medicine
DX: I48.0 Paroxysmal atrial fibrillation (principal); E78.9 Disorder of lipoprotein metabolism, unspecified; M81.0 Age-related osteoporosis without current pathological fracture; E55.9 Vitamin D deficiency, unspecified; M25.512 Pain in left shoulder; G89.29 Other chronic pain; M15.9 Polyosteoarthritis, unspecified; E66.09 Other obesity due to excess calories; Z68.31 Body mass index [BMI] 31.0-31.9, adult; Z79.01 Long term (current) use of anticoagulants; Z79.899 Other long term (current) drug therapy
CPT/HCPCS: 36415; 80053; 85025; 96127; 99212

== ENCOUNTER 2025-06-07 12:07 | Outpatient (AMB) | payer MEDICARE, SELFPAY ==
--- OUTSIDE RECORDS SUMMARY | 2025-06-07 14:36 | XMS_ITS | Patient Health Record ---
Author Organization [facility] Address [address] [place] [address] Care Team Providers Care Braider Setter Name Role Phone Jasen Linares Unavailable [phone] Reason For Referral No Information Plan Of Treatment No Information
--- OUTSIDE RECORDS SUMMARY | 2025-06-07 14:36 | XMS_ITS | Clinical Summary ---
Author Organization [facility] Address [address] [place] [address] Care Team Providers Care Waterworks Pump Station Operator Name Role Phone Unavailable Primary Care Provider [...] Drug Screen 09/02/2024 Depression Annual Screen 09/02/2024 [id number] ( season) 2025 07/24/2021, 12/14/2020, 11/16/2020 Imm-Influenza (#1) 2025 06/29/2021, 1 09/24/2019, 08/23/2016, Additional history exists Imm-Zoster, Recombinant Completed 04/21/20, 01/01/2019, 12/13/2015 Insurance HNE ([facility]) Member Subscriber Plan / Payer (Ef fective 2020-Present) Name:Nury Sterling Relation to Subscriber:Self Name:Nury Sterling Payer ID:[id number] Type:Indemnity Address: [address] [place] [address]
== END 2025-06-07 12:28 | disposition home or self-care (01) ==
LOC: HO.HMGAL 12:07
PROVIDERS: PCP Internal Medicine; Visit Provider Registered Nurse Emergency
DX: J30.89 Other allergic rhinitis (principal)
CPT/HCPCS: 95117; 95165

== ENCOUNTER 2025-06-16 10:37 | Outpatient (REF) | payer MEDICARE, SELFPAY ==
--- NOTE | ~2025-06-16 | MM_ITS ---
EXAMINATION: MM DIAGNOSTIC DIGITAL BREAST TOMOSYNTHESIS, BILATERAL CLINICAL INFORMATION: Two-year follow-up for a few punctate left breast calcifications. COMPARISON: Mammography: Comparison is made with relevant prior exams. TECHNIQUE: Digital breast mammography with tomosynthesis is performed in both the craniocaudal and mediolateral oblique views along with computer-aided detection (CAD). FINDINGS: The breasts are heterogeneously dense, which may obscure small masses. A few punctate calcifications in the retroareolar region of the left breast are not significantly changed on magnification views dating back for 2 years and therefore benign. There are no significant masses, abnormal calcifications, or other abnormalities. Results are provided to the patient at time of visit by the technologist. MM/MM tomosynthesis diagnostic BI IMPRESSION: No mammographic evidence of malignancy. ASSESSMENT: BI-RADS Category 2: Benign RECOMMENDATION: 1 year F/U This patient's information was entered into a reminder system with a target due date for their next mammogram. Electronically signed by: Nasima Perez DO 06/16/2025 12:01 PM EDT
--- NOTE | ~2025-06-16 | MM_ITS ---
EXAMINATION: DXA BONE DENSITY AXIAL HISTORY: OSTEOPOROSIS TECHNIQUE: [employer] Dual energy absorptiometry (DEXA) of the lumbar spine, total left hip, and femoral neck was performed. COMPARISON: Comparison is made with the prior examinations, most recent dated April 2021. FINDINGS: The bone mineral density of the lumbar spine is 1.018 g/cm2, corresponding to a T-score of -1.3, and a Z-score of -0.2. This is indicative of osteopenia. This represents a BMD change of 9.8% compared to the prior exam and 17% from baseline. The bone mineral density of the left total hip is 0.914g/cm2, and a Z-score of 0.6. This is indicative of normal bone mineral density. This represents a BMD change of 21.9% compared to the prior exam and 15.7% from baseline. The bone mineral density of the left femoral neck is 0.773 g/cm2, corresponding to a T-score of -1.9, and a Z-score of -0.3. This is indicative of osteopenia. This represents a BMD change of 17.7% compared to the prior exam and 10.6% from baseline. FRACTURE RISK: The FRAX index suggests a ten year probability of major osteoporotic fracture of 6.1%, and of hip fracture 1.1%. MM/XR DEXA axial skeleton IMPRESSION: Based on bone mineral density, and according to World Health Organization (WHO) criteria, the diagnosis is consistent with osteopenia based on bone mineral density in the femoral neck with T score of -1.9. This appears improved from her exams, most recent exam April 2021. Statistically, 68% of repeat scans fall within 1 SD (+/- 0.010 g/cm2 for AP spine L1-L4) and 1 SD (+/- 0.012 g/cm2 for femur total) FRAX is a trademark of the [employer]'s [place] for Metabolic Bone Disease, a World Health Organization (WHO) Collaborating Center. Electronically signed by: Nancy Cook MD 06/16/2025 01:09 PM EDT
--- OUTSIDE RECORDS SUMMARY | 2025-06-16 12:41 | XMS_ITS | Clinical Summary ---
Author Organization [facility] Address [address] [place] [address] Care Team Providers Care Waiter/Waitress Buffet Name Role Phone Unavailable Primary Care Provider [...] Drug Screen 09/02/2024 Depression Annual Screen 09/02/2024 [id number] ( season) 2025 07/24/2021, 12/14/2020, 11/16/2020 Imm-Influenza (#1) 2025 06/29/2021, 1 09/24/2019, 08/23/2016, Additional history exists Imm-Zoster, Recombinant Completed 04/21/20, 01/01/2019, 12/13/2015 Insurance HNE ([facility]) Member Subscriber Plan / Payer (Ef fective 2020-Present) Name:Nury Sterling Relation to Subscriber:Self Name:Nury Sterling Payer ID:[id number] Type:Indemnity Address: [address] [place] [address]
--- OUTSIDE RECORDS SUMMARY | 2025-06-16 12:41 | XMS_ITS | Patient Health Record ---
Author Organization [facility] Address [address] [place] [address] Care Team Providers Care Intertype Operator Name Role Phone Jasen Linares Unavailable [phone] Reason For Referral No Information Plan Of Treatment No Information
== END 2025-06-16 10:38 | disposition home or self-care (01) ==
LOC: HO.MAMMO 10:37
PROVIDERS: PCP Internal Medicine; Visit Provider Internal Medicine
DX: M81.0 Age-related osteoporosis without current pathological fracture (principal); R92.1 Mammographic calcification found on diagnostic imaging of breast
CPT/HCPCS: 77062; 77066; 77080

== ENCOUNTER → 2025-06-16 11:30 | Outpatient (BNV) | payer MEDICARE, SELFPAY | PROVIDERS: PCP Internal Medicine; Visit Provider Internal Medicine | DX: E28.39 Other primary ovarian failure (principal); R92.1 Mammographic calcification found on diagnostic imaging of breast | CPT/HCPCS: 77066; 77080; G0279 ==

== ENCOUNTER 2025-06-21 11:35 | Outpatient (AMB) | payer MEDICARE, SELFPAY | END 2025-06-21 11:36 | disposition home or self-care (01) | LOC: HO.HMGAL 11:35 | PROVIDERS: PCP Internal Medicine; Visit Provider Registered Nurse Emergency | DX: J30.89 Other allergic rhinitis (principal) | CPT/HCPCS: 95117; 95165 ==

== ENCOUNTER 2025-07-05 10:57 | Outpatient (AMB) | payer MEDICARE, SELFPAY ==
--- OUTSIDE RECORDS SUMMARY | 2025-07-05 13:42 | XMS_ITS | Patient Health Record ---
Author Organization [facility] Address [address] [place] [address] Care Team Providers Care Photoengraving Printer Name Role Phone LinaresJasen Unavailable [phone] Reason For Referral No Information Plan Of Treatment No Information
--- OUTSIDE RECORDS SUMMARY | 2025-07-05 13:42 | XMS_ITS | Clinical Summary ---
Author Organization [facility] Address [address] [place] [address] Care Team Providers Care Network Systems Integrator Name Role Phone Unavailable Primary Care Provider [...] Drug Screen 09/02/2024 Depression Annual Screen 09/02/2024 [id number] ( season) 2025 07/24/2021, 12/14/2020, 11/16/2020 Imm-Influenza (#1) 2025 06/29/2021, 1 09/24/2019, 08/23/2016, Additional history exists Imm-Zoster, Recombinant Completed 04/21/20, 01/01/2019, 12/13/2015 Insurance HNE ([facility]) Member Subscriber Plan / Payer (Ef fective 2020-Present) Name:Nury Sterling Relation to Subscriber:Self Name:Nury Sterling Payer ID:[id number] Type:Indemnity Address: [address] [place] [address]
== END 2025-07-05 10:58 | disposition home or self-care (01) ==
LOC: HO.HMGAL 10:57
PROVIDERS: PCP Internal Medicine; Visit Provider Registered Nurse Emergency
DX: J30.89 Other allergic rhinitis (principal)
CPT/HCPCS: 95117; 95165

== ENCOUNTER 2025-07-19 11:08 | Outpatient (AMB) | payer MEDICARE, SELFPAY | END 2025-07-19 11:09 | disposition home or self-care (01) | LOC: HO.HMGAL 11:08 | PROVIDERS: PCP Internal Medicine; Visit Provider Registered Nurse Emergency | DX: J30.89 Other allergic rhinitis (principal) | CPT/HCPCS: 95117; 95165 ==

== ENCOUNTER 2025-08-02 10:42 | Outpatient (AMB) | payer MEDICARE, SELFPAY | END 2025-08-02 10:46 | disposition home or self-care (01) | LOC: HO.HMGAL 10:42 | PROVIDERS: PCP Internal Medicine; Visit Provider Registered Nurse Emergency | DX: J30.89 Other allergic rhinitis (principal) | CPT/HCPCS: 95117; 95165 ==

== ENCOUNTER 2025-08-16 09:34 | Outpatient (AMB) | payer MEDICARE, SELFPAY | END 2025-08-16 09:34 | disposition home or self-care (01) | LOC: HO.HMGAL 09:34 | PROVIDERS: PCP Internal Medicine; Visit Provider Registered Nurse Emergency | DX: J30.89 Other allergic rhinitis (principal) | CPT/HCPCS: 95117; 95165 ==